=== PATIENT | female | born 1985 | race Caucasian/White ===

== ENCOUNTER → 2016-12-11 | Outpatient (CLI) | payer OTHER ==
[~2016-12-11] MED LIST: ALBU17IN2 INH; COUM7.5T PO; TYLE325T5 PO; XARE15TA PO
[2016-12-11 15:32] LABS: INR 1.86
== END ==
LOC: M LAB 14:50
PROVIDERS: ATTEND Family Medicine Addiction Medicine
DX: I82.409 Acute embolism and thrombosis of unspecified deep veins of unspecified lower extremity (principal)

== ENCOUNTER 2016-12-23 19:20 | Emergency (ER) | payer OTHER ==
[~2016-12-23] VITALS: Ht 165.1 cm; Wt 116.0 kg
[~2016-12-23 19:20] MED LIST changes: -ALBU17IN2 INH; -COUM7.5T PO
[2016-12-23] MEDS ORDERED: COUM7.5T PO (19:25)
[2016-12-23] MEDS ORDERED: IPRATROPIUM 0.5MG/ALBUTEROL 2.5MG INH SOL UD 3ML (DUONEB)(J7620) NEB ONE (19:45)
[2016-12-23] MEDS ORDERED: ALBUTEROL SULFATE 2.5 MG/0.5 ML INH NEB SOLN NEB ONE (19:45)
--- NOTE | 2016-12-23 20:18 | REP ---
PA and lateral chest: Comparison and 11/19/2015. 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 This is unchanged. Lung adams are clear. Cardiac size is normal. The [place], mediastinum, and bony thorax are unremarkable. Impression: There are no acute cardiopulmonary findings. Signed by Doug Cisse MD 12/23/2016 08:09 P
[2016-12-23] MEDS ORDERED: ALBU17IN2 INH (20:26)
[2016-12-23 20:33] VITALS: BP 133/72
== END 2016-12-23 20:36 | disposition home or self-care (01) ==
LOC: M ED 19:20
DX: J45.901 Unspecified asthma with (acute) exacerbation (principal); Z72.0 Tobacco use

== ENCOUNTER → 2017-03-16 | Outpatient (CLI) | payer OTHER ==
[~2017-03-16] MED LIST changes: +ALBU17IN2 INH; +COUM7.5T PO
[2017-03-16 14:28] LABS: INR 1.38
== END ==
LOC: M LAB 13:47
PROVIDERS: ATTEND Family Medicine Addiction Medicine
DX: I82.409 Acute embolism and thrombosis of unspecified deep veins of unspecified lower extremity (principal); Z79.01 Long term (current) use of anticoagulants

== ENCOUNTER → 2017-06-08 | Outpatient (REF) | payer OTHER ==
[2017-06-08 17:39] LABS: INR 2.12; PROTHROMBIN TIME 24.5 SECONDS (12.4-14.5)
== END ==
LOC: M LAB REF 16:18
DX: I82.409 Acute embolism and thrombosis of unspecified deep veins of unspecified lower extremity (principal)

== ENCOUNTER 2017-07-11 23:19 | Emergency (ER) | payer OTHER | END 2017-07-11 23:56 | disposition home or self-care (01) | LOC: M ED 23:19 | DX: J06.9 Acute upper respiratory infection, unspecified (principal); B34.9 Viral infection, unspecified; E03.9 Hypothyroidism, unspecified; G43.909 Migraine, unspecified, not intractable, without status migrainosus; D68.59 Other primary thrombophilia; Z86.718 Personal history of other venous thrombosis and embolism; Z79.899 Other long term (current) drug therapy; Z79.01 Long term (current) use of anticoagulants; Z88.5 Allergy status to narcotic agent; Z91.040 Latex allergy status; F17.210 Nicotine dependence, cigarettes, uncomplicated | CPT/HCPCS: 99283 ==

== ENCOUNTER → 2017-10-16 | Outpatient (REF) | payer OTHER ==
[2017-10-16 12:02] LABS: PROTHROMBIN TIME 30.7 SECONDS (12.4-14.5)
== END ==
LOC: M LAB REF 11:25
DX: I82.409 Acute embolism and thrombosis of unspecified deep veins of unspecified lower extremity (principal)
CPT/HCPCS: 85610

== ENCOUNTER → 2017-11-16 | Outpatient (REF) | payer OTHER ==
[2017-11-16 18:54] LABS: BASO # 0.1 10^3/uL (0.0-0.2); BASO % 0.9 % (0.0-1.0); EOS # 0.6 10^3/uL (0.0-0.50); EOS % 6.5 % (0.0-3.0); HEMATOCRIT 37.7 % (36.0-47.0); HEMOGLOBIN 12.4 g/dl (12.0-15.5); IMMATURE GRANULOCYTE % 0.3 % (0-3.0); LYMPH # 2.3 10^3/uL (1.5-4.5); LYMPH % 26.5 % (24.0-44.0); MEAN CORPUSCULAR HEMOGLOBIN 29.2 pg (27.0-33.0); MEAN CORPUSCULAR HGB CONC 32.9 g/dl (32.0-36.5); MEAN CORPUSCULAR VOLUME 88.7 fl (80.0-96.0); MONO # 0.5 10^3/uL (0.0-0.8); MONO % 5.1 % (0.0-5.0); NEUTROPHILS # 5.4 10^3/uL (1.8-7.7); NEUTROPHILS % 60.7 % (36.0-66.0); PLATELET COUNT, AUTOMATED 293 10^3/uL (150-450); RED BLOOD COUNT 4.25 10^6/uL (4.00-5.40); RED CELL DISTRIBUTION WIDTH 13.1 % (11.5-14.5); WHITE BLOOD COUNT 8.8 10^3/uL (4.0-10.0)
[2017-11-16 19:10] LABS: INR 1.51; PROTHROMBIN TIME 18.6 SECONDS (12.4-14.5)
[2017-11-16 19:21] LABS: IRON (FE) 24 UG/DL (50-170)
[2017-11-16 19:21] LABS: FERRITIN 8 NG/ML (8-252)
== END ==
LOC: M LAB REF 18:42
DX: I82.409 Acute embolism and thrombosis of unspecified deep veins of unspecified lower extremity (principal); D68.51 Activated protein C resistance

== ENCOUNTER 2017-11-20 21:12 | Emergency (ER) | payer MEDICAID, OTHER ==
[2017-11-20 23:25] LABS: HEMATOCRIT 38.2 % (36.0-47.0); HEMOGLOBIN 12.4 g/dl (12.0-15.5); MEAN CORPUSCULAR HEMOGLOBIN 28.7 pg (27.0-33.0); MEAN CORPUSCULAR HGB CONC 32.5 g/dl (32.0-36.5); MEAN CORPUSCULAR VOLUME 88.4 fl (80.0-96.0); PLATELET COUNT, AUTOMATED 267 10^3/uL (150-450); RED BLOOD COUNT 4.32 10^6/uL (4.00-5.40); WHITE BLOOD COUNT 10.4 10^3/uL (4.0-10.0)
[2017-11-20 23:36] LABS: INR 1.78; PROTHROMBIN TIME 21.3 SECONDS (12.4-14.5)
[2017-11-20 23:37] LABS: PARTIAL THROMBOPLASTIN TIME 38.3 SECONDS (26.8-37.9)
[2017-11-20 23:40] LABS: ANION GAP 9 MEQ/L (8-16); BLOOD UREA NITROGEN 13 MG/DL (7-18); CALCIUM LEVEL 9.7 MG/DL (8.5-10.1); CARBON DIOXIDE LEVEL 24 MEQ/L (21-32); CHLORIDE LEVEL 108 MEQ/L (98-107); CREATININE FOR GFR 0.82 MG/DL (0.55-1.30); GLOMERULAR FILTRATION RATE > 60.0 (>60); GLUCOSE, FASTING 92 MG/DL (70-100); POTASSIUM SERUM 3.8 MEQ/L (3.5-5.1); SODIUM LEVEL 141 MEQ/L (136-145)
[2017-11-21] MEDS ORDERED: ENOXAPARIN 100MG/1ML SYRINGE (J1650) SC (00:15)
[2017-11-21] MEDS: WARFARIN SOD 5 MG TAB PO (00:15)
[2017-11-21] MEDS: ENOXAPARIN 120 MG/0.8 ML SYR (J1650) SC ×2 (00:15→02:15)
== END 2017-11-21 02:23 | disposition home or self-care (01) ==
LOC: M ED 11-21 02:23
DX: I82.621 Acute embolism and thrombosis of deep veins of right upper extremity (principal); Z79.01 Long term (current) use of anticoagulants; F41.9 Anxiety disorder, unspecified; G43.909 Migraine, unspecified, not intractable, without status migrainosus; D68.59 Other primary thrombophilia; Z86.718 Personal history of other venous thrombosis and embolism; Z72.0 Tobacco use; Z79.899 Other long term (current) drug therapy; Z88.6 Allergy status to analgesic agent; Z88.5 Allergy status to narcotic agent; Z91.040 Latex allergy status
CPT/HCPCS: J1650

== ENCOUNTER → 2017-11-23 | Outpatient (CLI) | payer OTHER ==
[2017-11-23 18:50] LABS: INR 2.27; PROTHROMBIN TIME 25.9 SECONDS (12.4-14.5)
== END ==
LOC: M LAB 17:02
DX: Z51.81 Encounter for therapeutic drug level monitoring (principal); Z79.01 Long term (current) use of anticoagulants
CPT/HCPCS: 85610

== ENCOUNTER → 2017-12-01 | Outpatient (CLI) | payer OTHER ==
[2017-12-01 13:52] LABS: PROTHROMBIN TIME 21.2 SECONDS (12.1-14.4)
== END ==
LOC: M LAB 13:17
DX: Z51.81 Encounter for therapeutic drug level monitoring (principal); Z79.01 Long term (current) use of anticoagulants
CPT/HCPCS: 85610

== ENCOUNTER 2017-12-02 00:36 | Emergency (ER) | payer OTHER ==
[2017-12-02 01:42] LABS: BASO % 0.9 % (0.0-1.0); EOS % 5.3 % (0.0-3.0); HEMATOCRIT 38.9 % (36.0-47.0); HEMOGLOBIN 12.6 g/dl (12.0-15.5); LYMPH % 27.5 % (24.0-44.0); MEAN CORPUSCULAR HEMOGLOBIN 28.5 pg (27.0-33.0); MEAN CORPUSCULAR HGB CONC 32.4 g/dl (32.0-36.5); MONO % 5.7 % (0.0-5.0); NEUTROPHILS % 60.4 % (36.0-66.0); PLATELET COUNT, AUTOMATED 301 10^3/uL (150-450); RED BLOOD COUNT 4.42 10^6/uL (4.00-5.40); WHITE BLOOD COUNT 9.2 10^3/uL (4.0-10.0)
[2017-12-02 01:43] LABS: BASO # 0.1 10^3/uL (0.0-0.2); EOS # 0.5 10^3/uL (0.0-0.50); IMMATURE GRANULOCYTE % 0.2 % (0-3.0); LYMPH # 2.5 10^3/uL (1.5-4.5); MONO # 0.5 10^3/uL (0.0-0.8); NEUTROPHILS # 5.6 10^3/uL (1.8-7.7)
[2017-12-02 01:58] LABS: INR 1.97; PROTHROMBIN TIME 22.8 SECONDS (12.1-14.4)
[2017-12-02 01:59] LABS: CONTROL LINE HCG INT CTR LINE PRESENT; HCG, SERUM QUALITATIVE NEGATIVE (NEGATIVE); PARTIAL THROMBOPLASTIN TIME 46.8 SECONDS (25.4-37.6)
[2017-12-02] MEDS: LORazepam 2 MG/ML VIAL (J2060) IV (02:03)
[2017-12-02 02:06] LABS: ALBUMIN 3.3 GM/DL (3.2-5.2); ALBUMIN/GLOBULIN RATIO 0.85 (1.00-1.93); ALKALINE PHOSPHATASE 90 U/L (45-117); ALT/SGPT 28 U/L (12-78); ANION GAP 8 MEQ/L (8-16); AST/SGOT 10 U/L (7-37); BILIRUBIN,DIRECT < 0.1 MG/DL (0.0-0.2); BILIRUBIN,TOTAL 0.2 MG/DL (0.2-1.0); BLOOD UREA NITROGEN 14 MG/DL (7-18); CALCIUM LEVEL 9.5 MG/DL (8.5-10.1); CARBON DIOXIDE LEVEL 22 MEQ/L (21-32); CHLORIDE LEVEL 111 MEQ/L (98-107); CREATININE FOR GFR 0.81 MG/DL (0.55-1.30); GLOMERULAR FILTRATION RATE > 60.0 (>60); GLUCOSE, FASTING 98 MG/DL (70-100); LIPASE 209 U/L (73-393); POTASSIUM SERUM 4.2 MEQ/L (3.5-5.1); SODIUM LEVEL 141 MEQ/L (136-145); TOTAL PROTEIN 7.2 GM/DL (6.4-8.2)
[2017-12-02] MEDS ORDERED: ISOVUE-370 76% 100ML VIAL (Q9967) As Ordered (02:27)
== END 2017-12-02 04:05 | disposition home or self-care (01) ==
LOC: M ED 00:36
DX: R10.32 Left lower quadrant pain (principal); R11.0 Nausea; D68.59 Other primary thrombophilia; F41.9 Anxiety disorder, unspecified; Z86.718 Personal history of other venous thrombosis and embolism; Z79.899 Other long term (current) drug therapy; Z79.01 Long term (current) use of anticoagulants
CPT/HCPCS: Q9967

== ENCOUNTER → 2017-12-03 | Outpatient (CLI) | payer OTHER ==
[2017-12-03 14:38] LABS: INR 2.09; PROTHROMBIN TIME 23.9 SECONDS (12.1-14.4)
== END ==
LOC: M LAB 14:01
DX: Z51.81 Encounter for therapeutic drug level monitoring (principal); Z79.01 Long term (current) use of anticoagulants
CPT/HCPCS: 85610

== ENCOUNTER → 2017-12-07 | Outpatient (CLI) | payer OTHER ==
[2017-12-07 17:52] LABS: INR 1.96; PROTHROMBIN TIME 22.7 SECONDS (12.1-14.4)
== END ==
LOC: M LAB 16:51
DX: D68.1 Hereditary factor XI deficiency (principal)
CPT/HCPCS: 85610

== ENCOUNTER 2017-12-08 20:17 | Emergency (ER) | payer OTHER ==
[2017-12-08 23:18] LABS: INR 1.92; PROTHROMBIN TIME 22.3 SECONDS (12.1-14.4)
== END 2017-12-08 23:48 | disposition home or self-care (01) ==
LOC: M ED 20:17
DX: I82.621 Acute embolism and thrombosis of deep veins of right upper extremity (principal); R79.1 Abnormal coagulation profile; D68.59 Other primary thrombophilia; R51 Headache; Z72.0 Tobacco use; Z79.01 Long term (current) use of anticoagulants; Z79.899 Other long term (current) drug therapy; Z88.6 Allergy status to analgesic agent; Z88.5 Allergy status to narcotic agent; Z91.040 Latex allergy status
CPT/HCPCS: 93971

== ENCOUNTER → 2017-12-11 | Outpatient (REF) | payer OTHER ==
[2017-12-11 14:41] LABS: PROTHROMBIN TIME 24.9 SECONDS (12.1-14.4)
== END ==
LOC: M LAB REF 12:52
DX: Z79.01 Long term (current) use of anticoagulants (principal)

== ENCOUNTER → 2017-12-12 | Outpatient (CLI) | payer OTHER | LOC: M RAD 11:43 | DX: N92.1 Excessive and frequent menstruation with irregular cycle (principal) ==

== ENCOUNTER 2017-12-13 22:15 | Emergency (ER) | payer OTHER ==
[2017-12-14] MEDS: FAMOTIDINE 20 MG TAB PO (01:04)
[2017-12-14] MEDS: diphenhydrAMINE 50 MG CAP PO (01:04)
[2017-12-14] MEDS: methylPREDNISolone INJ 125 MG/2 ML VIAL (J2930) IM (01:04)
== END 2017-12-14 01:54 | disposition home or self-care (01) ==
LOC: M ED 22:15
DX: L50.0 Allergic urticaria (principal); D68.51 Activated protein C resistance; Z86.718 Personal history of other venous thrombosis and embolism; F17.210 Nicotine dependence, cigarettes, uncomplicated; Z79.899 Other long term (current) drug therapy; Z79.01 Long term (current) use of anticoagulants
CPT/HCPCS: J2930

== ENCOUNTER → 2017-12-15 | Outpatient (REF) | payer OTHER, MEDICAID ==
[2017-12-15 13:31] LABS: INR 2.76; PROTHROMBIN TIME 29.8 SECONDS (12.1-14.4)
== END ==
LOC: M LAB REF 13:03
DX: Z79.01 Long term (current) use of anticoagulants (principal)

== ENCOUNTER → 2017-12-18 | Outpatient (REF) | payer OTHER, MEDICAID ==
[2017-12-18 13:14] LABS: PROTHROMBIN TIME 22.2 SECONDS (12.1-14.4)
== END ==
LOC: M LAB REF 12:40
DX: Z51.81 Encounter for therapeutic drug level monitoring (principal); Z79.01 Long term (current) use of anticoagulants
CPT/HCPCS: 85610

== ENCOUNTER → 2017-12-24 | Outpatient (REF) | payer OTHER, MEDICAID ==
[2017-12-24 12:48] LABS: INR 2.65; PROTHROMBIN TIME 28.8 SECONDS (12.1-14.4)
== END ==
LOC: M LAB REF 12:22
DX: Z51.81 Encounter for therapeutic drug level monitoring (principal); Z79.01 Long term (current) use of anticoagulants
CPT/HCPCS: 85610

== ENCOUNTER 2017-12-30 19:46 | Emergency (ER) | payer OTHER, MEDICAID ==
[2017-12-30] MEDS: NS 1,000 ML IV (22:15)
[2017-12-30 22:28] LABS: BASO # 0.1 10^3/uL (0.0-0.2); BASO % 0.8 % (0.0-1.0); EOS # 0.5 10^3/uL (0.0-0.50); HEMATOCRIT 36.9 % (36.0-47.0); HEMOGLOBIN 11.7 g/dl (12.0-15.5); IMMATURE GRANULOCYTE % 0.3 % (0-3.0); LYMPH # 2.5 10^3/uL (1.5-4.5); LYMPH % 27.4 % (24.0-44.0); MEAN CORPUSCULAR HEMOGLOBIN 26.8 pg (27.0-33.0); MEAN CORPUSCULAR HGB CONC 31.7 g/dl (32.0-36.5); MEAN CORPUSCULAR VOLUME 84.6 fl (80.0-96.0); MONO # 0.5 10^3/uL (0.0-0.8); MONO % 5.6 % (0.0-5.0); NEUTROPHILS # 5.6 10^3/uL (1.8-7.7); NEUTROPHILS % 60.9 % (36.0-66.0); PLATELET COUNT, AUTOMATED 297 10^3/uL (150-450); RED BLOOD COUNT 4.36 10^6/uL (4.00-5.40); RED CELL DISTRIBUTION WIDTH 13.8 % (11.5-14.5); WHITE BLOOD COUNT 9.2 10^3/uL (4.0-10.0)
[2017-12-30 22:35] LABS: KETONE, URINE AUTO RFX NEGATIVE (NEGATIVE); MUCUS, URINE RFX SMALL (NEGATIVE); NITRITE, URINE AUTO RFX NEGATIVE (NEGATIVE); RBC, URINE AUTO RFX 2 /HPF (0-3); SPECIFIC GRAVITY UR AUTO RFX 1.013 (1.002-1.035); SQUAM EPITHELIAL CELL UR AURFX 4 /HPF (0-6); WBC, URINE AUTO RFX 2 /HPF (0-3)
[2017-12-30 22:50] LABS: LEUKOCYTE ESTERASE UR AUTO RFX TRACE (NEGATIVE)
[2017-12-30 23:07] LABS: ALBUMIN 3.4 GM/DL (3.2-5.2); ALBUMIN/GLOBULIN RATIO 0.83 (1.00-1.93); ALKALINE PHOSPHATASE 87 U/L (45-117); ALT/SGPT 20 U/L (12-78); AMYLASE 44 U/L (25-115); ANION GAP 10 MEQ/L (8-16); AST/SGOT 11 U/L (7-37); BILIRUBIN,DIRECT < 0.1 MG/DL (0.0-0.2); BILIRUBIN,TOTAL 0.2 MG/DL (0.2-1.0); BLOOD UREA NITROGEN 10 MG/DL (7-18); CALCIUM LEVEL 9.4 MG/DL (8.5-10.1); CARBON DIOXIDE LEVEL 22 MEQ/L (21-32); CHLORIDE LEVEL 108 MEQ/L (98-107); CK-MB VALUE MASS < 1.0 NG/ML (<3.6); CPK CREATINE PHOSPHOKINASE 59 U/L (26-192); CREATININE FOR GFR 0.69 MG/DL (0.55-1.30); GLOMERULAR FILTRATION RATE > 60.0 (>60); GLUCOSE, FASTING 84 MG/DL (70-100); LIPASE 181 U/L (73-393); MB/CK RELATIVE INDEX 1.69 (< OR =4); POTASSIUM SERUM 3.9 MEQ/L (3.5-5.1); SODIUM LEVEL 140 MEQ/L (136-145); TOTAL PROTEIN 7.5 GM/DL (6.4-8.2); TROPONIN I < 0.02 NG/ML (< 0.10)
[2017-12-30] MEDS ORDERED: ISOVUE-370 76% 100ML VIAL (Q9967) As Ordered (23:23)
[2017-12-30] MEDS: LORazepam 1 MG TAB PO (23:25)
[2017-12-30 23:26] LABS: CONTROL LINE UCG INT CTR LINE PRESENT; URINE PREG TEST NEGATIVE (NEGATIVE)
== END 2017-12-31 01:57 | disposition home or self-care (01) ==
LOC: M ED 12-31 01:57
DX: R10.13 Epigastric pain (principal); I44.0 Atrioventricular block, first degree; G43.909 Migraine, unspecified, not intractable, without status migrainosus; E03.9 Hypothyroidism, unspecified; D68.59 Other primary thrombophilia; F41.9 Anxiety disorder, unspecified; F41.0 Panic disorder [episodic paroxysmal anxiety]; F40.00 Agoraphobia, unspecified; Z86.718 Personal history of other venous thrombosis and embolism; Z87.01 Personal history of pneumonia (recurrent); N83.291 Other ovarian cyst, right side; R93.2 Abnormal findings on diagnostic imaging of liver and biliary tract; Z79.01 Long term (current) use of anticoagulants; Z79.899 Other long term (current) drug therapy; Z88.6 Allergy status to analgesic agent; Z88.5 Allergy status to narcotic agent; Z91.040 Latex allergy status
CPT/HCPCS: Q9967

== ENCOUNTER → 2018-01-01 | Outpatient (REF) | payer OTHER ==
[2018-01-01 14:26] LABS: INR 2.63; PROTHROMBIN TIME 28.6 SECONDS (12.1-14.4)
== END ==
LOC: M LAB REF 13:05
DX: Z79.01 Long term (current) use of anticoagulants (principal)

== ENCOUNTER → 2018-01-08 | Outpatient (REF) | payer OTHER ==
[2018-01-08 13:01] LABS: INR 2.75; PROTHROMBIN TIME 29.7 SECONDS (12.1-14.4)
== END ==
LOC: M LAB REF 12:45
DX: Z79.01 Long term (current) use of anticoagulants (principal)

== ENCOUNTER → 2018-01-12 | Outpatient (REF) | payer OTHER ==
[2018-01-12 12:34] LABS: INR 3.29; PROTHROMBIN TIME 34.2 SECONDS (12.1-14.4)
== END ==
LOC: M LAB REF 11:36
DX: Z79.01 Long term (current) use of anticoagulants (principal)

== ENCOUNTER → 2018-01-19 | Outpatient (REF) | payer OTHER ==
[2018-01-19 12:24] LABS: INR 2.36; PROTHROMBIN TIME 26.3 SECONDS (12.1-14.4)
== END ==
LOC: M LAB REF 11:58
DX: Z79.01 Long term (current) use of anticoagulants (principal)
CPT/HCPCS: 85610

== ENCOUNTER → 2018-01-25 | Outpatient (REF) | payer OTHER ==
[2018-01-25 17:39] LABS: INR 1.74; PROTHROMBIN TIME 20.6 SECONDS (12.1-14.4)
== END ==
LOC: M LAB REF 16:52
DX: Z79.01 Long term (current) use of anticoagulants (principal)

== ENCOUNTER 2018-02-09 16:27 | Emergency (ER) | payer OTHER, MEDICAID | END 2018-02-09 17:42 | disposition home or self-care (01) | LOC: M ED 16:27 | DX: M54.32 Sciatica, left side (principal); M54.10 Radiculopathy, site unspecified; G43.909 Migraine, unspecified, not intractable, without status migrainosus; Z86.718 Personal history of other venous thrombosis and embolism; F17.200 Nicotine dependence, unspecified, uncomplicated; Z88.6 Allergy status to analgesic agent; Z88.5 Allergy status to narcotic agent; Z91.040 Latex allergy status; Z79.899 Other long term (current) drug therapy; Z79.01 Long term (current) use of anticoagulants | CPT/HCPCS: 99283 ==

== ENCOUNTER → 2018-02-10 | Outpatient (REF) | payer OTHER ==
[2018-02-10 13:47] LABS: PROTHROMBIN TIME 25.7 SECONDS (12.1-14.4)
== END ==
LOC: M LAB REF 12:54
DX: D68.51 Activated protein C resistance (principal)

== ENCOUNTER → 2018-02-19 | Outpatient (REF) | payer OTHER ==
[2018-02-19 12:27] LABS: INR 2.14; PROTHROMBIN TIME 24.3 SECONDS (12.1-14.4)
== END ==
LOC: M LAB REF 12:01
DX: Z79.01 Long term (current) use of anticoagulants (principal)

== ENCOUNTER → 2018-02-26 | Outpatient (REF) | payer OTHER ==
[2018-02-26 13:04] LABS: PROTHROMBIN TIME 17.4 SECONDS (12.1-14.4)
== END ==
LOC: M LAB REF 12:40
DX: Z79.01 Long term (current) use of anticoagulants (principal)

== ENCOUNTER → 2018-03-02 | Outpatient (REF) | payer OTHER, MEDICAID ==
[2018-03-02 13:20] LABS: INR 2.31; PROTHROMBIN TIME 25.8 SECONDS (12.1-14.4)
== END ==
LOC: M LAB REF 12:13
DX: Z79.01 Long term (current) use of anticoagulants (principal)

== ENCOUNTER → 2018-03-09 | Outpatient (REF) | payer OTHER, MEDICAID ==
[2018-03-09 12:59] LABS: PROTHROMBIN TIME 26.7 SECONDS (12.1-14.4)
== END ==
LOC: M LAB REF 12:24
DX: Z79.01 Long term (current) use of anticoagulants (principal)

== ENCOUNTER → 2018-03-12 | Outpatient (REF) | payer OTHER, MEDICAID ==
[2018-03-12 14:31] LABS: INR 2.57; PROTHROMBIN TIME 28.1 SECONDS (12.1-14.4)
== END ==
LOC: M LAB REF 14:11
DX: Z79.01 Long term (current) use of anticoagulants (principal)
CPT/HCPCS: 85610

== ENCOUNTER → 2018-03-18 | Outpatient (REF) | payer OTHER, MEDICAID ==
[2018-03-18 13:01] LABS: INR 2.38; PROTHROMBIN TIME 26.5 SECONDS (12.1-14.4)
== END ==
LOC: M LAB REF 12:18
DX: Z79.01 Long term (current) use of anticoagulants (principal)

== ENCOUNTER 2018-03-21 00:52 | Emergency (ER) | payer OTHER, MEDICAID ==
[2018-03-21] MEDS ORDERED: ISOVUE-370 76% 100ML VIAL (Q9967) As Ordered (01:21)
[2018-03-21 01:47] LABS: BASO # 0.1 10^3/uL (0.0-0.2); BASO % 0.7 % (0.0-1.0); EOS # 0.9 10^3/uL (0.0-0.50); EOS % 7.5 % (0.0-3.0); HEMATOCRIT 29.8 % (36.0-47.0); HEMOGLOBIN 8.7 g/dl (12.0-15.5); IMMATURE GRANULOCYTE % 0.5 % (0-3.0); LYMPH # 3.5 10^3/uL (1.5-4.5); LYMPH % 28.5 % (24.0-44.0); MEAN CORPUSCULAR HEMOGLOBIN 21.6 pg (27.0-33.0); MEAN CORPUSCULAR HGB CONC 29.2 g/dl (32.0-36.5); MEAN CORPUSCULAR VOLUME 74.1 fl (80.0-96.0); MONO # 0.6 10^3/uL (0.0-0.8); MONO % 4.8 % (0.0-5.0); NEUTROPHILS # 7.1 10^3/uL (1.8-7.7); PLATELET COUNT, AUTOMATED 321 10^3/uL (150-450); RED BLOOD COUNT 4.02 10^6/uL (4.00-5.40); RED CELL DISTRIBUTION WIDTH 15.9 % (11.5-14.5); WHITE BLOOD COUNT 12.2 10^3/uL (4.0-10.0)
[2018-03-21 02:09] LABS: ANION GAP 10 MEQ/L (8-16); BLOOD UREA NITROGEN 17 MG/DL (7-18); CALCIUM LEVEL 9.3 MG/DL (8.5-10.1); CARBON DIOXIDE LEVEL 21 MEQ/L (21-32); CHLORIDE LEVEL 109 MEQ/L (98-107); CREATININE FOR GFR 1.03 MG/DL (0.55-1.30); GLOMERULAR FILTRATION RATE > 60.0 (>60); GLUCOSE, FASTING 96 MG/DL (70-100); POTASSIUM SERUM 4.1 MEQ/L (3.5-5.1); SODIUM LEVEL 140 MEQ/L (136-145)
== END 2018-03-21 04:06 | disposition home or self-care (01) ==
LOC: M ED 00:52
DX: R07.9 Chest pain, unspecified (principal); M54.9 Dorsalgia, unspecified; R06.00 Dyspnea, unspecified; G43.909 Migraine, unspecified, not intractable, without status migrainosus; D68.59 Other primary thrombophilia; Z86.718 Personal history of other venous thrombosis and embolism; Z79.899 Other long term (current) drug therapy; Z79.01 Long term (current) use of anticoagulants; Z88.5 Allergy status to narcotic agent; Z88.8 Allergy status to other drugs, medicaments and biological substances; Z91.040 Latex allergy status; F17.210 Nicotine dependence, cigarettes, uncomplicated
CPT/HCPCS: Q9967

== ENCOUNTER → 2018-03-25 | Outpatient (REF) | payer OTHER ==
[2018-03-25 17:49] LABS: INR 2.17; PROTHROMBIN TIME 24.6 SECONDS (12.1-14.4)
[2018-03-25 17:52] LABS: BASO # 0.1 10^3/uL (0.0-0.2); EOS # 0.5 10^3/uL (0.0-0.50); EOS % 5.6 % (0.0-3.0); HEMATOCRIT 28.3 % (36.0-47.0); HEMOGLOBIN 8.4 g/dl (12.0-15.5); IMMATURE GRANULOCYTE % 0.3 % (0-3.0); LYMPH # 2.1 10^3/uL (1.5-4.5); LYMPH % 23.1 % (24.0-44.0); MEAN CORPUSCULAR HEMOGLOBIN 21.8 pg (27.0-33.0); MEAN CORPUSCULAR HGB CONC 29.7 g/dl (32.0-36.5); MEAN CORPUSCULAR VOLUME 73.3 fl (80.0-96.0); MONO # 0.4 10^3/uL (0.0-0.8); MONO % 4.6 % (0.0-5.0); NEUTROPHILS % 65.4 % (36.0-66.0); PLATELET COUNT, AUTOMATED 367 10^3/uL (150-450); RED BLOOD COUNT 3.86 10^6/uL (4.00-5.40); RED CELL DISTRIBUTION WIDTH 16.4 % (11.5-14.5); WHITE BLOOD COUNT 9.1 10^3/uL (4.0-10.0)
[2018-03-25 18:03] LABS: FERRITIN 5 NG/ML (8-252); FOLATE 17.1 NG/ML (>5.4)
[2018-03-25 18:03] LABS: IRON (FE) 16 UG/DL (50-170)
== END ==
LOC: M LAB REF 17:09
DX: D64.9 Anemia, unspecified (principal)

== ENCOUNTER 2018-03-27 20:38 | Emergency (ER) | payer OTHER ==
[2018-03-27] MEDS: METOCLOPRAMIDE INJ 10MG/2ML VIAL (J2765) IV (21:00)
[2018-03-27] MEDS: NS 1,000 ML IV (21:00)
[2018-03-27 21:33] LABS: BASO # 0.1 10^3/uL (0.0-0.2); BASO % 0.9 % (0.0-1.0); EOS # 0.5 10^3/uL (0.0-0.50); EOS % 5.2 % (0.0-3.0); HEMATOCRIT 28.3 % (36.0-47.0); HEMOGLOBIN 8.1 g/dl (12.0-15.5); IMMATURE GRANULOCYTE % 0.4 % (0-3.0); LYMPH # 1.6 10^3/uL (1.5-4.5); MEAN CORPUSCULAR HEMOGLOBIN 21.4 pg (27.0-33.0); MEAN CORPUSCULAR HGB CONC 28.6 g/dl (32.0-36.5); MEAN CORPUSCULAR VOLUME 74.9 fl (80.0-96.0); MONO # 0.5 10^3/uL (0.0-0.8); MONO % 5.7 % (0.0-5.0); NEUTROPHILS # 6.3 10^3/uL (1.8-7.7); NEUTROPHILS % 69.8 % (36.0-66.0); PLATELET COUNT, AUTOMATED 362 10^3/uL (150-450); RED BLOOD COUNT 3.78 10^6/uL (4.00-5.40); RED CELL DISTRIBUTION WIDTH 16.6 % (11.5-14.5); WHITE BLOOD COUNT 9.1 10^3/uL (4.0-10.0)
[2018-03-27 21:39] LABS: BILIRUBIN, URINE MANUAL NEGATIVE (NEGATIVE); BLOOD URINE MANUAL RFX POSITIVE (NEGATIVE); GLUCOSE, URINE (UA) MANUAL NEGATIVE (NEGATIVE); KETONE, URINE MANUAL NEGATIVE (NEGATIVE); MICROSCOPIC INDICATED? RFX YES (NO); NITRITE, URINE MANUAL RFX NEGATIVE (NEGATIVE); PROTEIN, URINE MANUAL REFLEX 2+ mg/dL (NEGATIVE); SP GRAVITY,URINE MANUAL REFLEX 1.024 (1.002-1.035); UROBILINOGEN, URINE MANUAL NORMAL (NORMAL)
[2018-03-27 21:41] LABS: RBC, URINE TNTC /hpf (0-3); SQUAMOUS EPITHELIAL CELL URINE SMALL AMOUNT /hpf (SMALL AMT)
[2018-03-27 21:42] LABS: AMORPHOUS SEDIMENT, URINE SMALL AMOUNT (NEGATIVE); BACTERIA, URINE SMALL AMOUNT; HYALINE CAST, URINE NONE SEEN /lpf (0-1)
[2018-03-27 21:43] LABS: MICROSCOPIC EXAM PERFORMED
[2018-03-27 22:06] LABS: ALBUMIN 3.2 GM/DL (3.2-5.2); ALBUMIN/GLOBULIN RATIO 0.84 (1.00-1.93); ALKALINE PHOSPHATASE 89 U/L (45-117); ALT/SGPT 18 U/L (12-78); ANION GAP 11 MEQ/L (8-16); AST/SGOT 16 U/L (7-37); BILIRUBIN,DIRECT < 0.1 MG/DL (0.0-0.2); BILIRUBIN,TOTAL 0.2 MG/DL (0.2-1.0); BLOOD UREA NITROGEN 9 MG/DL (7-18); CALCIUM LEVEL 9.3 MG/DL (8.5-10.1); CARBON DIOXIDE LEVEL 21 MEQ/L (21-32); CHLORIDE LEVEL 108 MEQ/L (98-107); CREATININE FOR GFR 0.79 MG/DL (0.55-1.30); GLOMERULAR FILTRATION RATE > 60.0 (>60); GLUCOSE, FASTING 122 MG/DL (70-100); POTASSIUM SERUM 3.9 MEQ/L (3.5-5.1); SODIUM LEVEL 140 MEQ/L (136-145)
== END 2018-03-27 22:42 | disposition home or self-care (01) ==
LOC: M ED 20:38
DX: D50.9 Iron deficiency anemia, unspecified (principal); I10 Essential (primary) hypertension; F17.200 Nicotine dependence, unspecified, uncomplicated; Z88.8 Allergy status to other drugs, medicaments and biological substances; Z88.5 Allergy status to narcotic agent; Z91.040 Latex allergy status
CPT/HCPCS: J2765

== ENCOUNTER → 2018-03-30 | Outpatient (REF) | payer OTHER, MEDICAID ==
[2018-03-30 20:35] LABS: INR 1.95; PROTHROMBIN TIME 22.6 SECONDS (12.1-14.4)
== END ==
LOC: M LAB REF 19:49
DX: Z51.81 Encounter for therapeutic drug level monitoring (principal); Z79.01 Long term (current) use of anticoagulants
CPT/HCPCS: 85610

== ENCOUNTER 2018-04-19 19:45 | Emergency (ER) | payer OTHER, MEDICAID ==
[2018-04-19 21:05] LABS: PARTIAL THROMBOPLASTIN TIME 50.3 SECONDS (25.4-37.6)
[2018-04-19 21:28] LABS: INR 2.85; PROTHROMBIN TIME 30.5 SECONDS (12.1-14.4)
== END 2018-04-19 22:06 | disposition home or self-care (01) ==
LOC: M ED 19:45
DX: Z51.81 Encounter for therapeutic drug level monitoring (principal); Z79.01 Long term (current) use of anticoagulants; D68.2 Hereditary deficiency of other clotting factors
CPT/HCPCS: 85610

== ENCOUNTER 2018-04-21 15:02 | Emergency (ER) | payer OTHER ==
[2018-04-21 15:40] LABS: BASO # 0.1 10^3/uL (0.0-0.2); EOS # 0.4 10^3/uL (0.0-0.50); EOS % 5.2 % (0.0-3.0); HEMATOCRIT 36.3 % (36.0-47.0); HEMOGLOBIN 10.8 g/dl (12.0-15.5); IMMATURE GRANULOCYTE % 0.4 % (0-3.0); LYMPH # 1.8 10^3/uL (1.5-4.5); LYMPH % 22.1 % (24.0-44.0); MEAN CORPUSCULAR HEMOGLOBIN 23.6 pg (27.0-33.0); MEAN CORPUSCULAR HGB CONC 29.8 g/dl (32.0-36.5); MEAN CORPUSCULAR VOLUME 79.4 fl (80.0-96.0); MONO # 0.4 10^3/uL (0.0-0.8); NEUTROPHILS # 5.5 10^3/uL (1.8-7.7); NEUTROPHILS % 66.3 % (36.0-66.0); PLATELET COUNT, AUTOMATED 305 10^3/uL (150-450); RED BLOOD COUNT 4.57 10^6/uL (4.00-5.40); RED CELL DISTRIBUTION WIDTH 23.8 % (11.5-14.5); WHITE BLOOD COUNT 8.2 10^3/uL (4.0-10.0)
[2018-04-21 15:50] LABS: INR 2.43; PROTHROMBIN TIME 26.9 SECONDS (12.1-14.4)
[2018-04-21 15:51] LABS: PARTIAL THROMBOPLASTIN TIME 44.6 SECONDS (25.4-37.6)
[2018-04-21] MEDS: NS 1,000 ML IV (16:12)
[2018-04-21 16:13] LABS: IRON (FE) 82 UG/DL (50-170); TOTAL IRON BINDING CAPACITY 409 UG/DL (250-450)
== END 2018-04-21 17:03 | disposition home or self-care (01) ==
LOC: M ED 15:02
DX: D50.9 Iron deficiency anemia, unspecified (principal); I95.1 Orthostatic hypotension; G43.909 Migraine, unspecified, not intractable, without status migrainosus; D68.59 Other primary thrombophilia; Z86.718 Personal history of other venous thrombosis and embolism; Z72.0 Tobacco use; Z79.01 Long term (current) use of anticoagulants; Z79.899 Other long term (current) drug therapy; Z88.6 Allergy status to analgesic agent; Z88.5 Allergy status to narcotic agent; Z91.040 Latex allergy status
CPT/HCPCS: 83550

== ENCOUNTER → 2018-04-27 | Outpatient (REF) | payer OTHER, MEDICAID ==
[2018-04-27 12:53] LABS: INR 3.14
== END ==
LOC: M LAB REF 12:21
DX: Z51.81 Encounter for therapeutic drug level monitoring (principal); Z79.01 Long term (current) use of anticoagulants
CPT/HCPCS: 85610

== ENCOUNTER → 2018-05-14 | Outpatient (REF) | payer OTHER, MEDICAID ==
[2018-05-14 17:58] LABS: INR 2.12; PROTHROMBIN TIME 24.2 SECONDS (12.1-14.4)
== END ==
LOC: M LAB REF 16:54
DX: Z79.01 Long term (current) use of anticoagulants (principal)
CPT/HCPCS: 85610

== ENCOUNTER → 2018-06-09 | Outpatient (REF) | payer OTHER, MEDICAID ==
[~2018-06-09] MED LIST changes: +AUGM875T28 PO; +BUSP15TA47 PO; +BUSP30TA PO; +CYCL10TA PO; +FERR28TA PO; +IBUP-1022 PO; +KLON0.5T PO; +LOVE1INJ SC; +PRED20TA; +VENTAER INH; +WARF-20 PO; +WARF-22; +WARF-23 PO
[2018-06-09 19:08] LABS: BASO # 0.1 10^3/uL (0.0-0.2); BASO % 1.1 % (0.0-1.0); EOS # 0.6 10^3/uL (0.0-0.50); HEMATOCRIT 36.2 % (36.0-47.0); HEMOGLOBIN 11.2 g/dl (12.0-15.5); LYMPH # 2.4 10^3/uL (1.5-4.5); LYMPH % 24.2 % (24.0-44.0); MEAN CORPUSCULAR HEMOGLOBIN 25.5 pg (27.0-33.0); MEAN CORPUSCULAR HGB CONC 30.9 g/dl (32.0-36.5); MEAN CORPUSCULAR VOLUME 82.3 fl (80.0-96.0); MONO # 0.4 10^3/uL (0.0-0.8); MONO % 4.5 % (0.0-5.0); NEUTROPHILS # 6.3 10^3/uL (1.8-7.7); PLATELET COUNT, AUTOMATED 317 10^3/uL (150-450); WHITE BLOOD COUNT 9.9 10^3/uL (4.0-10.0)
[2018-06-09 19:22] LABS: INR 2.42; PROTHROMBIN TIME 26.9 SECONDS (12.1-14.4)
[2018-06-09 19:29] LABS: ALBUMIN 3.4 GM/DL (3.2-5.2); ALT/SGPT 26 U/L (12-78); BILIRUBIN,TOTAL < 0.1 MG/DL (0.2-1.0); BLOOD UREA NITROGEN 14 MG/DL (7-18); CALCIUM LEVEL 9.4 MG/DL (8.5-10.1); CARBON DIOXIDE LEVEL 23 MEQ/L (21-32); CHLORIDE LEVEL 110 MEQ/L (98-107); CREATININE FOR GFR 0.84 MG/DL (0.55-1.30); GLOMERULAR FILTRATION RATE > 60.0 (>60); GLUCOSE, FASTING 104 MG/DL (70-100); POTASSIUM SERUM 4.1 MEQ/L (3.5-5.1); SODIUM LEVEL 141 MEQ/L (136-145); TOTAL PROTEIN 7.2 GM/DL (6.4-8.2)
== END ==
LOC: M LAB REF 18:36
PROVIDERS: ATTEND Nurse Practitioner Family
DX: E66.9 Obesity, unspecified (principal); D64.9 Anemia, unspecified; Z79.01 Long term (current) use of anticoagulants; D68.51 Activated protein C resistance

== ENCOUNTER 2018-06-16 17:30 | Emergency (ER) | payer MEDICAID, OTHER ==
[~2018-06-16] VITALS: Ht 162.6 cm; Wt 110.5 kg
[~2018-06-16 17:30] MED LIST changes: -KLON0.5T PO
[2018-06-16] MEDS ORDERED: KLON0.5T PO (17:38)
--- NOTE | 2018-06-16 19:11 | REPVR ---
EXAM: US Right Duplex Upper Extremity Veins, Limited EXAM DATE/TIME: 06/16/2018 6:04 PM CLINICAL HISTORY: 32 years old, female; Pain; Arn, upper; Right; Additional info: Pain/clotting disorder TECHNIQUE: Real-time Duplex ultrasound of the Right Upper Extremity with 2-D wall scale, color Doppler flow and spectral waveform analysis. Limited exam focused on the right upper extremity veins. COMPARISON: US DUPLEX EXT UPPER VEINS UNILATE 12/08/2017 9:43 PM FINDINGS: Right deep veins: Unremarkable. Axillary and brachial veins are patent throughout without thrombus. Normal compressibility, augmentation response and Doppler waveforms. Visualized internal jugular and subclavian veins are patent. Right superficial veins: Unremarkable. Visualized cephalic and basilic veins are patent without thrombus. Soft tissues: Unremarkable. IMPRESSION: No acute findings. No evidence of deep vein thrombosis. Electronically signed by: Blake Hernanedz On 06/16/2018 19:11:13 PM
[2018-06-16 19:23] VITALS: BP 102/75
== END 2018-06-16 19:24 | disposition home or self-care (01) ==
LOC: M ED 17:30
DX: M79.621 Pain in right upper arm (principal)

== ENCOUNTER → 2018-06-16 | Outpatient (REF) | payer OTHER, MEDICAID ==
[2018-06-16 15:01] LABS: INR 1.56; PROTHROMBIN TIME 18.9 SECONDS (12.1-14.4)
== END ==
LOC: M LAB REF 14:36
PROVIDERS: ATTEND Nurse Practitioner Family
DX: Z51.81 Encounter for therapeutic drug level monitoring (principal); Z79.01 Long term (current) use of anticoagulants; D68.51 Activated protein C resistance

== ENCOUNTER → 2018-06-21 | Outpatient (REF) | payer OTHER ==
[~2018-06-21] MED LIST changes: +KLON0.5T PO
[2018-06-21 19:01] LABS: INR 2.15; PROTHROMBIN TIME 24.4 SECONDS (12.1-14.4)
== END ==
LOC: M LAB REF 16:52
PROVIDERS: ATTEND Nurse Practitioner Adult Health
DX: Z51.81 Encounter for therapeutic drug level monitoring (principal); Z79.01 Long term (current) use of anticoagulants

== ENCOUNTER 2018-06-25 11:24 | Emergency (ER) | payer OTHER ==
[~2018-06-25] VITALS: Ht 165.1 cm; Wt 110.5 kg
[2018-06-25 11:57] LABS: BASO # 0.1 10^3/uL (0.0-0.2); BASO % 0.8 % (0.0-1.0); EOS # 0.6 10^3/uL (0.0-0.50); EOS % 6.8 % (0.0-3.0); HEMATOCRIT 30.3 % (36.0-47.0); HEMOGLOBIN 9.3 g/dl (12.0-15.5); LYMPH # 2.2 10^3/uL (1.5-4.5); LYMPH % 23.4 % (24.0-44.0); MEAN CORPUSCULAR HEMOGLOBIN 24.7 pg (27.0-33.0); MEAN CORPUSCULAR HGB CONC 30.7 g/dl (32.0-36.5); MEAN CORPUSCULAR VOLUME 80.6 fl (80.0-96.0); MONO # 0.4 10^3/uL (0.0-0.8); MONO % 4.7 % (0.0-5.0); NEUTROPHILS # 5.9 10^3/uL (1.8-7.7); NEUTROPHILS % 64.1 % (36.0-66.0); PLATELET COUNT, AUTOMATED 406 10^3/uL (150-450); RED BLOOD COUNT 3.76 10^6/uL (4.00-5.40); WHITE BLOOD COUNT 9.2 10^3/uL (4.0-10.0)
[2018-06-25 12:10] LABS: INR 2.2; PROTHROMBIN TIME 24.9 SECONDS (12.1-14.4)
[2018-06-25 12:11] LABS: PARTIAL THROMBOPLASTIN TIME 46.2 SECONDS (25.4-37.6)
[2018-06-25 12:25] LABS: ERYTHROCYTE SEDIMENTATION RATE 44 mm/hr (0-20)
[2018-06-25 12:34] LABS: ALBUMIN 3.4 GM/DL (3.2-5.2); ALT/SGPT 18 U/L (12-78); BILIRUBIN,DIRECT < 0.1 MG/DL (0.0-0.2); BILIRUBIN,TOTAL 0.2 MG/DL (0.2-1.0); BLOOD UREA NITROGEN 8 MG/DL (7-18); C REACTIVE PROTEIN QUANTITATIV 1.44 MG/DL (0.00-0.30); CALCIUM LEVEL 9.5 MG/DL (8.5-10.1); CARBON DIOXIDE LEVEL 23 MEQ/L (21-32); CHLORIDE LEVEL 108 MEQ/L (98-107); CREATININE FOR GFR 0.66 MG/DL (0.55-1.30); GLOMERULAR FILTRATION RATE > 60.0 (>60); GLUCOSE, FASTING 89 MG/DL (70-100); POTASSIUM SERUM 4.3 MEQ/L (3.5-5.1); SODIUM LEVEL 138 MEQ/L (136-145); TOTAL PROTEIN 6.8 GM/DL (6.4-8.2)
--- NOTE | 2018-06-25 14:04 | REP ---
RIGHT UPPER EXTREMITY DUPLEX VEINS: HISTORY: Rule out DVT. There are no filling defects in the deep venous system. The deep venous system is patent. IMPRESSION: There is no deep venous thrombosis. Electronically Signed by Ankush Mcmahon MD 06/25/2018 02:08 P
[2018-06-25 14:22] VITALS: BP 151/65
== END 2018-06-25 14:26 | disposition home or self-care (01) ==
LOC: M ED 11:24
DX: M79.621 Pain in right upper arm (principal); F17.210 Nicotine dependence, cigarettes, uncomplicated; Z86.718 Personal history of other venous thrombosis and embolism; Z98.890 Other specified postprocedural states; Z88.8 Allergy status to other drugs, medicaments and biological substances; Z91.040 Latex allergy status; Z88.5 Allergy status to narcotic agent; Z79.01 Long term (current) use of anticoagulants; Z79.899 Other long term (current) drug therapy

== ENCOUNTER 2018-07-19 10:12 | Emergency (ER) | payer OTHER ==
[~2018-07-19] VITALS: Ht 165.1 cm; Wt 109.1 kg
[2018-07-19] MEDS ORDERED: IPRATROPIUM 0.5MG/ALBUTEROL 2.5MG INH SOL UD 3ML (DUONEB)(J7620) NEB ONE (11:15)
[2018-07-19] MEDS ORDERED: GI COCKTAIL 50ML BTL(HYOSCYAMINE/MAALOX/LIDOCAINE VISCOUS)(1:3:1) PO ONE (11:15)
[2018-07-19] MEDS ORDERED: DICYCLOMINE 10 MG CAP PO ONE (11:15)
[2018-07-19] MEDS ORDERED: SUCRALFATE 1 GM TAB PO ONE (11:15)
[2018-07-19 12:00] LABS: HEMATOCRIT 36.7 % (36.0-47.0); HEMOGLOBIN 10.9 g/dl (12.0-15.5); MEAN CORPUSCULAR HEMOGLOBIN 24.7 pg (27.0-33.0); MEAN CORPUSCULAR HGB CONC 29.7 g/dl (32.0-36.5); PLATELET COUNT, AUTOMATED 364 10^3/uL (150-450); RED BLOOD COUNT 4.42 10^6/uL (4.00-5.40); WHITE BLOOD COUNT 7.6 10^3/uL (4.0-10.0)
--- NOTE | 2018-07-19 12:10 | REP ---
ACUTE ABDOMINAL SERIES: 07/19/2018. Clinical history: Epigastric pain, gas. Comparison: 09/26/2013. Findings: PA chest: Lungs remain well inflated without pleural effusion or definite infiltrate. Heart is not grossly enlarged. There is a right aortic arch unchanged. Airway is intact. Bones unremarkable. No free air. Flat and upright abdomen. Multiple pelvic phleboliths are again noted. There is no definite calcifications over the renal fossae or expected course of the ureters. Scattered stool and gas in the colon. No dilated loops, air-fluid levels, masses or free air. Loop of small bowel in the left upper quadrant, gas filled and slightly distended with paucity of gas otherwise. Bones without acute finding. There is no visible hiatal hernia. Impression: 1. Nonspecific gas pattern. There is no obstruction, mass or free air. Solitary loop of mildly prominent small bowel left upper quadrant gas filled may reflect some focal ileus. No obstruction. No free air. 2. Pelvic phleboliths noted. No abnormal calcifications over the renal fossae or expected course of the ureters. 3. PA chest unchanged. Right-sided aortic arch as anatomic variation. Nothing acute. Electronically Signed by Frankie Laird MD 07/19/2018 05:54 P
--- NOTE | 2018-07-19 12:12 | REP ---
CHEST ONE-VIEW: 07/19/2018. Comparison: Acute abdominal series 07/19/2018, chest x-ray 03/21/2018. Clinical history: Epigastric pain, gas. Findings: Lateral chest reviewed in conjunction with a PA chest from the acute abdominal series and compared to 03/2018 prior shows the lungs well inflated. No definite infiltrate. Heart is not enlarged. There is a right-sided aortic arch. No pleural effusion or pleural thickening seen. Impression: 1. No acute cardiopulmonary disease, stable chest. Right-sided aortic arch as anatomic variation. Electronically Signed by Frankie Laird MD 07/19/2018 05:55 P
[2018-07-19 12:35] LABS: ALBUMIN 3.7 GM/DL (3.2-5.2); ALT/SGPT 19 U/L (12-78); BILIRUBIN,TOTAL 0.2 MG/DL (0.2-1.0); BLOOD UREA NITROGEN 10 MG/DL (7-18); CALCIUM LEVEL 10.1 MG/DL (8.5-10.1); CARBON DIOXIDE LEVEL 22 MEQ/L (21-32); CHLORIDE LEVEL 109 MEQ/L (98-107); CK-MB VALUE MASS < 1.0 NG/ML (<3.6); CPK CREATINE PHOSPHOKINASE 60 U/L (26-192); CREATININE FOR GFR 0.68 MG/DL (0.55-1.30); GLOMERULAR FILTRATION RATE > 60.0 (>60); GLUCOSE, FASTING 94 MG/DL (70-100); LIPASE 167 U/L (73-393); MB/CK RELATIVE INDEX 1.67 (< OR =4); POTASSIUM SERUM 4.5 MEQ/L (3.5-5.1); SODIUM LEVEL 138 MEQ/L (136-145); TOTAL PROTEIN 7.8 GM/DL (6.4-8.2); TROPONIN I < 0.02 NG/ML (< 0.10)
[2018-07-19] MEDS ORDERED: SIME180C PO (13:15)
[2018-07-19] MEDS ORDERED: RANI15TA PO (13:15)
[2018-07-19] MEDS ORDERED: REGL10TA6 PO (13:15)
[2018-07-19] MEDS ORDERED: DICY1CAP8 PO (13:15)
[2018-07-19] MEDS ORDERED: METOCLOPRAMIDE 10 MG TAB PO ONE (13:15)
[2018-07-19] MEDS ORDERED: [UNRECOGNIZED DRUG - CODE] PO (13:16)
[2018-07-19 14:09] VITALS: BP 137/96
== END 2018-07-19 14:10 | disposition home or self-care (01) ==
LOC: M ED 10:12
DX: K56.7 Ileus, unspecified (principal); R14.1 Gas pain; R51 Headache; Z86.718 Personal history of other venous thrombosis and embolism; D68.51 Activated protein C resistance; D64.9 Anemia, unspecified; F17.210 Nicotine dependence, cigarettes, uncomplicated; Z88.5 Allergy status to narcotic agent; Z88.8 Allergy status to other drugs, medicaments and biological substances; Z91.040 Latex allergy status; Z79.899 Other long term (current) drug therapy; Z79.01 Long term (current) use of anticoagulants

== ENCOUNTER → 2018-07-20 | Outpatient (REF) | payer OTHER ==
[~2018-07-20] MED LIST changes: +DICY1CAP8 PO; +RANI15TA PO; +REGL10TA6 PO; +SIME180C PO; +[UNRECOGNIZED DRUG - CODE] PO
[2018-07-20 18:58] LABS: INR 2.07; PROTHROMBIN TIME 23.7 SECONDS (12.1-14.4)
== END ==
LOC: M LAB REF 17:09
PROVIDERS: ATTEND Nurse Practitioner Family
DX: D68.51 Activated protein C resistance (principal); Z79.01 Long term (current) use of anticoagulants

== ENCOUNTER → 2018-08-03 | Outpatient (REF) | payer OTHER ==
[2018-08-03 12:21] LABS: INR 1.95; PROTHROMBIN TIME 22.6 SECONDS (12.1-14.4)
== END ==
LOC: M LAB REF 11:43
PROVIDERS: ATTEND Nurse Practitioner Family
DX: Z79.01 Long term (current) use of anticoagulants (principal); D68.51 Activated protein C resistance

== ENCOUNTER → 2018-08-10 | Outpatient (REF) | payer OTHER, MEDICAID ==
[~2018-08-10] MED LIST changes: +MOME50SP NARES
[2018-08-10 13:49] LABS: INR 1.76; PROTHROMBIN TIME 20.8 SECONDS (12.1-14.4)
== END ==
LOC: M LAB REF 12:20
PROVIDERS: ATTEND Nurse Practitioner Family
DX: Z79.01 Long term (current) use of anticoagulants (principal); D68.51 Activated protein C resistance

== ENCOUNTER 2018-08-22 21:49 | Emergency (ER) | payer MEDICAID, OTHER ==
[~2018-08-22] VITALS: Ht 162.6 cm; Wt 109.1 kg
[~2018-08-22 21:49] MED LIST changes: -MOME50SP NARES
[2018-08-22] MEDS ORDERED: MOME50SP NARES (22:43)
[2018-08-22 23:05] VITALS: BP 128/86
== END 2018-08-22 23:06 | disposition home or self-care (01) ==
LOC: M ED 21:49
DX: H74.8X1 Other specified disorders of right middle ear and mastoid (principal); Z79.01 Long term (current) use of anticoagulants; Z79.899 Other long term (current) drug therapy; Z88.6 Allergy status to analgesic agent; Z88.5 Allergy status to narcotic agent; Z91.040 Latex allergy status

== ENCOUNTER 2018-10-24 19:05 | Emergency (ER) | payer OTHER ==
[~2018-10-24] VITALS: Ht 162.6 cm; Wt 109.1 kg
[~2018-10-24 19:05] MED LIST changes: +MOME50SP NARES
[2018-10-24 20:19] VITALS: BP 141/85
[2018-10-24] MEDS ORDERED: CYCLOBENZAPRINE 10 MG TAB PO ONE (20:45)
[2018-10-24] MEDS ORDERED: CYCL10TA PO (20:47)
== END 2018-10-24 20:56 | disposition home or self-care (01) ==
LOC: M ED 19:05
DX: M62.838 Other muscle spasm (principal); Z86.718 Personal history of other venous thrombosis and embolism; Z72.0 Tobacco use; Z79.01 Long term (current) use of anticoagulants; Z88.6 Allergy status to analgesic agent; Z88.5 Allergy status to narcotic agent; Z91.040 Latex allergy status

== ENCOUNTER → 2018-11-18 | Outpatient (REF) | payer OTHER ==
[2018-11-18 12:14] LABS: INR 1.43; PROTHROMBIN TIME 17.1 SECONDS (11.8-14.0)
== END ==
LOC: M LAB REF 11:31
PROVIDERS: ATTEND Nurse Practitioner Family
DX: Z79.01 Long term (current) use of anticoagulants (principal); D68.51 Activated protein C resistance

== ENCOUNTER → 2018-12-27 | Outpatient (REF) | payer OTHER ==
[~2018-12-27] MED LIST changes: +PSEU120T32 PO; -[UNRECOGNIZED DRUG - CODE] PO
[2018-12-27 15:56] LABS: AMORPHOUS SEDIMENT SMALL (NEGATIVE); APPEARANCE, URINE TURBID (CLEAR); BACTERIA, URINE AUTO 1+ (NEGATIVE); BILIRUBIN, URINE AUTO NEGATIVE (NEGATIVE); BLOOD, URINE BLOOD 1+ (NEGATIVE); COLOR, URINE AMBER (YELLOW); GLUCOSE, URINE (UA) AUTO NEGATIVE (NEGATIVE); KETONE, URINE AUTO NEGATIVE (NEGATIVE); LEUKOCYTE ESTERASE, URINE AUTO 3+ (NEGATIVE); MUCUS, URINE SMALL (NEGATIVE); NITRITE, URINE AUTO NEGATIVE (NEGATIVE); PROTEIN, URINE AUTO NEGATIVE (NEGATIVE); RBC, URINE AUTO 7 /HPF (0-3); SPECIFIC GRAVITY URINE AUTO 1.019 (1.002-1.035); SQUAMOUS EPITHELIAL CELL UR AU 19 /HPF (0-6); UROBILINOGEN, URINE AUTO 0.2 mg/dL (0.0-2.0); WBC, URINE AUTO 53 /HPF (0-3)
[2018-12-27 16:05] LABS: BASO # 0.1 10^3/uL (0.0-0.2); BASO % 0.9 % (0.0-1.0); EOS # 0.5 10^3/uL (0.0-0.50); EOS % 5.9 % (0.0-3.0); HEMOGLOBIN 9.2 g/dl (12.0-15.5); LYMPH # 1.9 10^3/uL (1.5-4.5); LYMPH % 20.7 % (24.0-44.0); MEAN CORPUSCULAR HEMOGLOBIN 21.3 pg (27.0-33.0); MEAN CORPUSCULAR HGB CONC 28.8 g/dl (32.0-36.5); MEAN CORPUSCULAR VOLUME 74.2 fl (80.0-96.0); MONO # 0.3 10^3/uL (0.0-0.8); MONO % 3.7 % (0.0-5.0); NEUTROPHILS # 6.2 10^3/uL (1.8-7.7); NEUTROPHILS % 68.5 % (36.0-66.0); PLATELET COUNT, AUTOMATED 333 10^3/uL (150-450); RED BLOOD COUNT 4.31 10^6/uL (4.00-5.40)
[2018-12-27 16:16] LABS: ALBUMIN 3.4 GM/DL (3.2-5.2); ALT/SGPT 20 U/L (12-78); BILIRUBIN,TOTAL 0.1 MG/DL (0.2-1.0); BLOOD UREA NITROGEN 14 MG/DL (7-18); CARBON DIOXIDE LEVEL 22 MEQ/L (21-32); CHLORIDE LEVEL 111 MEQ/L (98-107); CHOLESTEROL LEVEL 197 MG/DL (<200); CHOLESTEROL RISK RATIO 5.051 (<5); FREE T4 0.73 NG/DL (0.76-1.46); GLOMERULAR FILTRATION RATE > 60.0 (>60); GLUCOSE, FASTING 126 MG/DL (70-100); HDL CHOLESTEROL 39 MG/DL (>40); LDL CHOLESTEROL 127 MG/DL (<100); NON-HDL-C 158 MG/DL; POTASSIUM SERUM 4.2 MEQ/L (3.5-5.1); SODIUM LEVEL 141 MEQ/L (136-145); TOTAL PROTEIN 7.3 GM/DL (6.4-8.2); TRIGLYCERIDES LEVEL 155 MG/DL (<150)
[2018-12-27 16:18] LABS: TOTAL 25(OH) VITAMIN D 19.5 NG/ML (30.0-100.0)
[2018-12-30 00:06] LABS: Lyme Disease IgG/IgM Antibodie <0.91 ISR (0.00-0.90); Lyme Disease IgM Ab Quantitati <0.80 index (0.00-0.79)
== END ==
LOC: M LAB REF 15:27
PROVIDERS: ATTEND Family Medicine
DX: Z13.228 Encounter for screening for other metabolic disorders (principal)

== ENCOUNTER 2019-02-06 11:19 | Emergency (ER) | payer OTHER ==
[~2019-02-06] VITALS: Ht 165.1 cm; Wt 119.5 kg
[~2019-02-06 11:19] MED LIST changes: +CLAR10CA3 PO; +ELIQ5TAB PO; +MULTCAP PO
[2019-02-06 12:22] LABS: BASO # 0.1 10^3/uL (0.0-0.2); BASO % 1.3 % (0.0-1.0); EOS # 0.5 10^3/uL (0.0-0.5); EOS % 6.7 % (0.0-3.0); HEMATOCRIT 34.7 % (36.0-47.0); HEMOGLOBIN 10.3 g/dl (12.0-15.5); LYMPH # 1.9 10^3/uL (1.5-5.0); MEAN CORPUSCULAR HEMOGLOBIN 22.6 pg (27.0-33.0); MEAN CORPUSCULAR HGB CONC 29.7 g/dl (32.0-36.5); MEAN CORPUSCULAR VOLUME 76.1 fl (80.0-96.0); MONO # 0.5 10^3/uL (0.0-0.8); NEUTROPHILS # 4.9 10^3/uL (1.5-8.5); NEUTROPHILS % 61.5 % (36.0-66.0); PLATELET COUNT, AUTOMATED 286 10^3/uL (150-450); RED BLOOD COUNT 4.56 10^6/uL (4.00-5.40); WHITE BLOOD COUNT 7.9 10^3/uL (4.0-10.0)
[2019-02-06 12:42] LABS: ERYTHROCYTE SEDIMENTATION RATE 47 mm/hr (0-20)
[2019-02-06] MEDS ORDERED: CLEO300C2 PO (12:55)
[2019-02-06 13:06] VITALS: BP 109/73
== END 2019-02-06 13:08 | disposition home or self-care (01) ==
LOC: M ED 11:19
DX: N61.1 Abscess of the breast and nipple (principal); G43.909 Migraine, unspecified, not intractable, without status migrainosus; F17.210 Nicotine dependence, cigarettes, uncomplicated; D64.9 Anemia, unspecified; Z88.5 Allergy status to narcotic agent; Z88.6 Allergy status to analgesic agent; Z91.040 Latex allergy status; Z86.718 Personal history of other venous thrombosis and embolism; Z86.59 Personal history of other mental and behavioral disorders; Z79.01 Long term (current) use of anticoagulants; Z79.899 Other long term (current) drug therapy

== ENCOUNTER 2019-02-23 14:23 | Emergency (ER) | payer OTHER ==
[~2019-02-23] VITALS: Ht 162.6 cm; Wt 120.1 kg
[~2019-02-23 14:23] MED LIST changes: +CLEO300C2 PO
[2019-02-23] MEDS ORDERED: FERR325T81 PO (14:27)
[2019-02-23] MEDS ORDERED: GI COCKTAIL 50ML BTL(HYOSCYAMINE/MAALOX/LIDOCAINE VISCOUS)(1:3:1) PO ONE (15:30)
[2019-02-23 15:45] LABS: BASO # 0.1 10^3/uL (0.0-0.2); BASO % 0.9 % (0.0-1.0); EOS # 0.7 10^3/uL (0.0-0.5); EOS % 5.1 % (0.0-3.0); HEMOGLOBIN 10.1 g/dl (12.0-15.5); LYMPH # 2.1 10^3/uL (1.5-5.0); LYMPH % 16.6 % (24.0-44.0); MEAN CORPUSCULAR HEMOGLOBIN 23.2 pg (27.0-33.0); MEAN CORPUSCULAR HGB CONC 29.7 g/dl (32.0-36.5); MONO # 0.7 10^3/uL (0.0-0.8); MONO % 5.1 % (0.0-5.0); NEUTROPHILS # 9.1 10^3/uL (1.5-8.5); NEUTROPHILS % 71.8 % (36.0-66.0); PLATELET COUNT, AUTOMATED 423 10^3/uL (150-450); RED BLOOD COUNT 4.36 10^6/uL (4.00-5.40); WHITE BLOOD COUNT 12.7 10^3/uL (4.0-10.0)
--- NOTE | 2019-02-23 15:50 | REP ---
Chest x-ray: Two views. History: Short of breath and chest pain. Comparison study July 19, 2018. A right aortic arch is again noted. The cardiac apex and gastric air bubble are left-sided. The lungs are well inflated and clear. Pleural angles are sharp. Heart size is normal. Pulmonary vasculature is not increased. Impression: Right aortic arch again noted. Otherwise no acute disease. Electronically Signed by Francis Chand MD 02/23/2019 03:42 P
[2019-02-23 16:14] LABS: BLOOD UREA NITROGEN 8 MG/DL (7-18); CARBON DIOXIDE LEVEL 25 MEQ/L (21-32); CHLORIDE LEVEL 108 MEQ/L (98-107); CK-MB VALUE MASS < 1.0 NG/ML (<3.6); CPK CREATINE PHOSPHOKINASE 58 U/L (26-192); CREATININE FOR GFR 0.73 MG/DL (0.55-1.30); GLOMERULAR FILTRATION RATE > 60.0 (>60); GLUCOSE, FASTING 95 MG/DL (70-100); MB/CK RELATIVE INDEX 1.72 (< OR =4); POTASSIUM SERUM 4.1 MEQ/L (3.5-5.1); SODIUM LEVEL 142 MEQ/L (136-145); TROPONIN I < 0.02 NG/ML (< 0.10)
[2019-02-23] MEDS ORDERED: PRIL20TA2 PO (17:04)
[2019-02-23 17:11] VITALS: BP 147/82
--- NOTE | 2019-02-23 20:48 | ECGEPIP ---
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
== END 2019-02-23 17:16 | disposition home or self-care (01) ==
LOC: M ED 14:23
DX: K29.70 Gastritis, unspecified, without bleeding (principal); K21.9 Gastro-esophageal reflux disease without esophagitis; Z79.899 Other long term (current) drug therapy; Z79.01 Long term (current) use of anticoagulants; Z88.5 Allergy status to narcotic agent; Z88.8 Allergy status to other drugs, medicaments and biological substances; Z91.040 Latex allergy status; F17.210 Nicotine dependence, cigarettes, uncomplicated

== ENCOUNTER → 2019-05-09 | Outpatient (REF) | payer OTHER ==
[~2019-05-09] MED LIST changes: +FERR325T81 PO; +PRIL20TA2 PO
[2019-05-09 19:35] LABS: ALBUMIN 3.4 GM/DL (3.2-5.2); ALT/SGPT 17 U/L (12-78); BILIRUBIN,TOTAL 0.2 MG/DL (0.2-1.0); BLOOD UREA NITROGEN 12 MG/DL (7-18); CALCIUM LEVEL 9.8 MG/DL (8.5-10.1); CARBON DIOXIDE LEVEL 24 MEQ/L (21-32); CHLORIDE LEVEL 111 MEQ/L (98-107); CHOLESTEROL LEVEL 175 MG/DL (<200); CHOLESTEROL RISK RATIO 4.605 (<5); CREATININE FOR GFR 0.75 MG/DL (0.55-1.30); FREE T4 0.82 NG/DL (0.76-1.46); GLOMERULAR FILTRATION RATE > 60.0 (>60); GLUCOSE, FASTING 88 MG/DL (70-100); HDL CHOLESTEROL 38 MG/DL (>40); LDL CHOLESTEROL 121 MG/DL (<100); NON-HDL-C 137 MG/DL; POTASSIUM SERUM 4.4 MEQ/L (3.5-5.1); SODIUM LEVEL 140 MEQ/L (136-145); TOTAL PROTEIN 7.2 GM/DL (6.4-8.2); TRIGLYCERIDES LEVEL 78 MG/DL (<150)
== END ==
LOC: M LAB REF 18:44
PROVIDERS: ATTEND Family Medicine
DX: E78.5 Hyperlipidemia, unspecified (principal); E07.89 Other specified disorders of thyroid

== ENCOUNTER → 2019-07-04 | Outpatient (CLI) | payer OTHER ==
--- NOTE | 2019-07-04 10:50 | REP ---
Right upper extremity deep vein duplex ultrasound: The deep veins demonstrate normal compression, normal Doppler color flow and normal Doppler waveforms with respiration augmentation at multiple levels from the brachial veins to the jugular vein. Impression: There is no deep vein thrombus. There is no change from the comparison study of 06/25/2018. Electronically Signed by Doug Cisse MD 07/04/2019 10:41 A
== END ==
LOC: M RAD 09:47
PROVIDERS: ATTEND Nurse Practitioner Family
DX: M79.601 Pain in right arm (principal); Z86.718 Personal history of other venous thrombosis and embolism

== ENCOUNTER 2019-07-21 00:33 | Emergency (ER) | payer OTHER ==
[~2019-07-21] VITALS: Ht 162.6 cm; Wt 118.2 kg
[2019-07-21 00:33] VITALS: BP 161/76
--- NOTE | 2019-07-21 01:27 | REPVR ---
PROCEDURE INFORMATION: Exam: US Duplex Left Lower Extremity Veins, Limited Exam date and time: 07/21/2019 12:59 AM Age: 34 years old Clinical indication: Pain; Leg, upper; Left; Additional info: Left lower leg pain and HX of dvt's TECHNIQUE: Imaging protocol: Real-time Duplex ultrasound of the Left Lower Extremity with 2-D wall scale, color Doppler flow and spectral waveform analysis with image documentation. Limited exam focused on the left lower extremity veins. COMPARISON: US Duplex, Ext,LOWER veins,unilat 07/05/2014 4:52 AM FINDINGS: Left deep veins: Unremarkable. The common femoral, femoral and popliteal veins are patent without thrombus. Normal compressibility, augmentation response and Doppler waveforms. Left superficial veins: Unremarkable. Saphenofemoral junction is patent without thrombus. Soft tissues: Unremarkable. IMPRESSION: No sonographic evidence of deep vein thrombosis. Electronically signed by: David Cummins On 07/21/2019 01:27:17 AM
== END 2019-07-21 01:54 | disposition home or self-care (01) ==
LOC: M ED 00:33
DX: R25.2 Cramp and spasm (principal); Z86.718 Personal history of other venous thrombosis and embolism; Z79.899 Other long term (current) drug therapy; Z79.01 Long term (current) use of anticoagulants; Z88.5 Allergy status to narcotic agent; Z88.8 Allergy status to other drugs, medicaments and biological substances; Z91.040 Latex allergy status; F17.210 Nicotine dependence, cigarettes, uncomplicated

== ENCOUNTER → 2019-11-23 | Outpatient (REF) | payer OTHER ==
[~2019-11-23] MED LIST changes: -COUM7.5T PO; +COUM7.5T6 PO; +CYCL-707 PO; -CYCL10TA PO
[2019-11-23 14:55] LABS: ALBUMIN 3.2 GM/DL (3.2-5.2); ALT/SGPT 21 U/L (12-78); BILIRUBIN,TOTAL 0.3 MG/DL (0.2-1.0); BLOOD UREA NITROGEN 12 MG/DL (7-18); CALCIUM LEVEL 9.7 MG/DL (8.5-10.1); CARBON DIOXIDE LEVEL 22 MEQ/L (21-32); CHLORIDE LEVEL 108 MEQ/L (98-107); CHOLESTEROL LEVEL 177 MG/DL (<200); CHOLESTEROL RISK RATIO 4.783 (<5); CREATININE FOR GFR 0.67 MG/DL (0.55-1.30); GLOMERULAR FILTRATION RATE > 60.0 (>60); GLUCOSE, FASTING 91 MG/DL (70-100); HDL CHOLESTEROL 37 MG/DL (>40); IRON (FE) 19 UG/DL (50-170); LDL CHOLESTEROL 118 MG/DL (<100); NON-HDL-C 140 MG/DL; POTASSIUM SERUM 4.3 MEQ/L (3.5-5.1); SODIUM LEVEL 138 MEQ/L (136-145); TOTAL PROTEIN 7.1 GM/DL (6.4-8.2); TRIGLYCERIDES LEVEL 109 MG/DL (<150)
[2019-11-23 15:00] LABS: BASO # 0.1 10^3/uL (0.0-0.2); BASO % 0.7 % (0.0-1.0); EOS # 0.6 10^3/uL (0.0-0.5); EOS % 6.3 % (0.0-3.0); HEMATOCRIT 34.3 % (36.0-47.0); HEMOGLOBIN 9.8 g/dl (12.0-15.5); LYMPH # 2.4 10^3/uL (1.5-5.0); LYMPH % 24.2 % (24.0-44.0); MEAN CORPUSCULAR HEMOGLOBIN 21.1 pg (27.0-33.0); MEAN CORPUSCULAR HGB CONC 28.6 g/dl (32.0-36.5); MEAN CORPUSCULAR VOLUME 73.9 fl (80.0-96.0); MONO # 0.7 10^3/uL (0.0-0.8); MONO % 7.2 % (0.0-5.0); NEUTROPHILS # 6.1 10^3/uL (1.5-8.5); NEUTROPHILS % 61.1 % (36.0-66.0); PLATELET COUNT, AUTOMATED 369 10^3/uL (150-450); RED BLOOD COUNT 4.64 10^6/uL (4.00-5.40)
== END ==
LOC: M LAB REF 11:19
PROVIDERS: ATTEND Family Medicine Addiction Medicine
DX: E55.9 Vitamin D deficiency, unspecified (principal); D50.9 Iron deficiency anemia, unspecified; E07.89 Other specified disorders of thyroid

== ENCOUNTER → 2019-12-01 | Outpatient (REF) | payer OTHER ==
[2019-12-01 19:03] LABS: APPEARANCE, URINE HAZY (CLEAR); BACTERIA, URINE AUTO NEGATIVE (NEGATIVE); BILIRUBIN, URINE AUTO NEGATIVE (NEGATIVE); BLOOD, URINE BLOOD NEGATIVE (NEGATIVE); COLOR, URINE YELLOW (YELLOW); GLUCOSE, URINE (UA) AUTO NEGATIVE (NEGATIVE); KETONE, URINE AUTO NEGATIVE (NEGATIVE); LEUKOCYTE ESTERASE, URINE AUTO NEGATIVE (NEGATIVE); MUCUS, URINE SMALL (NEGATIVE); NITRITE, URINE AUTO NEGATIVE (NEGATIVE); PROTEIN, URINE AUTO NEGATIVE (NEGATIVE); RBC, URINE AUTO 0 /HPF (0-3); SPECIFIC GRAVITY URINE AUTO 1.018 (1.002-1.035); SQUAMOUS EPITHELIAL CELL UR AU 2 /HPF (0-6); UROBILINOGEN, URINE AUTO 0.2 mg/dL (0.0-2.0); WBC, URINE AUTO 0 /HPF (0-3)
== END ==
LOC: M LAB REF 17:21
PROVIDERS: ATTEND Family Medicine Addiction Medicine
DX: R35.0 Frequency of micturition (principal)

== ENCOUNTER → 2020-07-18 | Outpatient (REF) | payer OTHER ==
[2020-07-18 17:04] LABS: BASO # 0.1 10^3/uL (0.0-0.2); BASO % 1.1 % (0.0-1.0); EOS # 0.6 10^3/uL (0.0-0.5); EOS % 6.5 % (0.0-3.0); HEMATOCRIT 32.6 % (36.0-47.0); HEMOGLOBIN 9.5 g/dl (12.0-15.5); LYMPH # 2.2 10^3/uL (1.5-5.0); LYMPH % 25.9 % (24.0-44.0); MEAN CORPUSCULAR HEMOGLOBIN 23.4 pg (27.0-33.0); MEAN CORPUSCULAR HGB CONC 29.1 g/dl (32.0-36.5); MEAN CORPUSCULAR VOLUME 80.3 fl (80.0-96.0); MONO # 0.5 10^3/uL (0.0-0.8); MONO % 5.3 % (2.0-8.0); NEUTROPHILS # 5.1 10^3/uL (1.5-8.5); NEUTROPHILS % 60.7 % (36.0-66.0); PLATELET COUNT, AUTOMATED 349 10^3/uL (150-450); RED BLOOD COUNT 4.06 10^6/uL (4.00-5.40); WHITE BLOOD COUNT 8.4 10^3/uL (4.0-10.0)
[2020-07-18 17:22] LABS: ALBUMIN 3.3 GM/DL (3.2-5.2); ALT/SGPT 22 U/L (12-78); BILIRUBIN,TOTAL 0.1 MG/DL (0.2-1.0); BLOOD UREA NITROGEN 13 MG/DL (7-18); CARBON DIOXIDE LEVEL 24 MEQ/L (21-32); CHLORIDE LEVEL 108 MEQ/L (98-107); CHOLESTEROL LEVEL 178 MG/DL (<200); CREATININE FOR GFR 0.76 MG/DL (0.55-1.30); FERRITIN 5 NG/ML (8-252); GLOMERULAR FILTRATION RATE > 60.0 (>60); GLUCOSE, FASTING 98 MG/DL (70-100); HDL CHOLESTEROL 37 MG/DL (>40); IRON (FE) 13 UG/DL (50-170); LDL CHOLESTEROL 119 MG/DL (<100); NON-HDL-C 141 MG/DL; PERCENT SATURATION 2.9 % (13.2-45.0); POTASSIUM SERUM 4.3 MEQ/L (3.5-5.1); SODIUM LEVEL 139 MEQ/L (136-145); TOTAL 25(OH) VITAMIN D 18.7 NG/ML (30.0-100.0); TOTAL IRON BINDING CAPACITY 447 UG/DL (250-450); TOTAL PROTEIN 7.1 GM/DL (6.4-8.2); TRIGLYCERIDES LEVEL 109 MG/DL (<150)
== END ==
LOC: M LAB REF 16:16
PROVIDERS: ATTEND Physician Assistant
DX: E78.5 Hyperlipidemia, unspecified (principal); D50.9 Iron deficiency anemia, unspecified; F41.1 Generalized anxiety disorder

== ENCOUNTER → 2020-08-04 | Outpatient (REF) | payer OTHER ==
[2020-08-04 18:47] LABS: APPEARANCE, URINE HAZY (CLEAR); BACTERIA, URINE AUTO 1+ (NEGATIVE); BILIRUBIN, URINE AUTO NEGATIVE (NEGATIVE); BLOOD, URINE BLOOD 1+ (NEGATIVE); COLOR, URINE YELLOW (YELLOW); GLUCOSE, URINE (UA) AUTO NEGATIVE (NEGATIVE); KETONE, URINE AUTO NEGATIVE (NEGATIVE); LEUKOCYTE ESTERASE, URINE AUTO 3+ (NEGATIVE); MUCUS, URINE SMALL (NEGATIVE); NITRITE, URINE AUTO NEGATIVE (NEGATIVE); PROTEIN, URINE AUTO NEGATIVE (NEGATIVE); RBC, URINE AUTO 2 /HPF (0-3); SPECIFIC GRAVITY URINE AUTO 1.012 (1.002-1.035); SQUAMOUS EPITHELIAL CELL UR AU 5 /HPF (0-6); UROBILINOGEN, URINE AUTO 0.2 mg/dL (0.0-2.0); WBC, URINE AUTO 12 /HPF (0-3)
== END ==
LOC: M LAB REF 17:58
PROVIDERS: ATTEND Physician Assistant Medical
DX: N39.0 Urinary tract infection, site not specified (principal)

== ENCOUNTER → 2020-08-13 | Outpatient (REF) | payer OTHER ==
[2020-08-13 17:10] LABS: BASO # 0.1 10^3/uL (0.0-0.2); BASO % 1.2 % (0.0-1.0); EOS # 0.5 10^3/uL (0.0-0.5); EOS % 6.8 % (0.0-3.0); HEMATOCRIT 39.5 % (36.0-47.0); HEMOGLOBIN 11.9 g/dl (12.0-15.5); LYMPH # 1.4 10^3/uL (1.5-5.0); LYMPH % 19.9 % (24.0-44.0); MEAN CORPUSCULAR HEMOGLOBIN 25.6 pg (27.0-33.0); MEAN CORPUSCULAR HGB CONC 30.1 g/dl (32.0-36.5); MEAN CORPUSCULAR VOLUME 85.1 fl (80.0-96.0); MONO # 0.5 10^3/uL (0.0-0.8); MONO % 6.6 % (2.0-8.0); NEUTROPHILS # 4.4 10^3/uL (1.5-8.5); NEUTROPHILS % 65.1 % (36.0-66.0); PLATELET COUNT, AUTOMATED 299 10^3/uL (150-450); RED BLOOD COUNT 4.64 10^6/uL (4.00-5.40); WHITE BLOOD COUNT 6.8 10^3/uL (4.0-10.0)
[2020-08-13 17:27] LABS: PERCENT SATURATION 39.4 % (13.2-45.0)
== END ==
LOC: M LAB REF 16:30
PROVIDERS: ATTEND Physician Assistant
DX: D50.9 Iron deficiency anemia, unspecified (principal)

== ENCOUNTER 2020-09-21 19:38 | Emergency (ER) | payer OTHER ==
[~2020-09-21] VITALS: Ht 165.1 cm; Wt 121.4 kg
[~2020-09-21 19:38] MED LIST changes: -SIME180C PO; +SIME180C25 PO
[2020-09-21 19:40] VITALS: BP 135/91
[2020-09-21] MEDS ORDERED: DOXY100C37 (19:46)
[2020-09-21] MEDS ORDERED: HYDR-3363 (19:46)
== END 2020-09-21 20:33 | disposition left against medical advice (07) ==
LOC: M ED 19:38
DX: Z53.21 Procedure and treatment not carried out due to patient leaving prior to being seen by health care provider (principal)

== ENCOUNTER 2020-09-21 21:36 | Emergency (ER) | payer OTHER ==
[~2020-09-21] VITALS: Ht 165.1 cm; Wt 121.8 kg
[~2020-09-21 21:36] MED LIST changes: +DOXY100C37; +HYDR-3363
[2020-09-21] MEDS ORDERED: DOXYCYCLINE HYCLATE 100MG TABLET PO ONE (23:20)
[2020-09-21 23:40] VITALS: BP 128/88
== END 2020-09-21 23:43 | disposition home or self-care (01) ==
LOC: M ED 21:36
DX: L03.314 Cellulitis of groin (principal); G43.909 Migraine, unspecified, not intractable, without status migrainosus; D64.9 Anemia, unspecified; Z88.5 Allergy status to narcotic agent; F41.0 Panic disorder [episodic paroxysmal anxiety]; F40.00 Agoraphobia, unspecified; Z88.6 Allergy status to analgesic agent; Z91.040 Latex allergy status; Z86.718 Personal history of other venous thrombosis and embolism; Z79.01 Long term (current) use of anticoagulants; Z79.899 Other long term (current) drug therapy

== ENCOUNTER 2020-10-08 21:11 | Emergency (ER) | payer OTHER ==
[2020-10-08] MEDS ORDERED: NS 1,000 ML IV ONE (22:20)
[2020-10-08 22:52] LABS: BASO # 0.1 10^3/uL (0.0-0.2); BASO % 0.7 % (0.0-1.0); EOS # 0.6 10^3/uL (0.0-0.5); EOS % 4.8 % (0.0-3.0); HEMATOCRIT 36.3 % (36.0-47.0); HEMOGLOBIN 10.9 g/dl (12.0-15.5); LYMPH # 2.4 10^3/uL (1.5-5.0); LYMPH % 19.6 % (24.0-44.0); MEAN CORPUSCULAR HEMOGLOBIN 24.3 pg (27.0-33.0); MEAN CORPUSCULAR VOLUME 80.8 fl (80.0-96.0); MONO # 0.9 10^3/uL (0.0-0.8); MONO % 7.2 % (2.0-8.0); NEUTROPHILS # 8.1 10^3/uL (1.5-8.5); NEUTROPHILS % 67.3 % (36.0-66.0); PLATELET COUNT, AUTOMATED 312 10^3/uL (150-450); RED BLOOD COUNT 4.49 10^6/uL (4.00-5.40)
[2020-10-08 23:04] LABS: INR 0.98; PROTHROMBIN TIME 13.2 SECONDS (12.5-14.3)
[2020-10-08 23:05] LABS: PARTIAL THROMBOPLASTIN TIME 30.2 SECONDS (24.2-38.5)
[2020-10-08 23:19] LABS: HCG, SERUM QUALITATIVE NEGATIVE (NEGATIVE)
[2020-10-08 23:27] LABS: RSV AMPLIFICATION NEGATIVE (NEGATIVE)
[2020-10-08 23:28] LABS: ALBUMIN 3.3 GM/DL (3.2-5.2); ALT/SGPT 19 U/L (12-78); BILIRUBIN,DIRECT < 0.1 MG/DL (0.0-0.2); BILIRUBIN,TOTAL < 0.1 MG/DL (0.2-1.0); BLOOD UREA NITROGEN 13 MG/DL (7-18); CARBON DIOXIDE LEVEL 25 MEQ/L (21-32); CHLORIDE LEVEL 110 MEQ/L (98-107); CK-MB VALUE MASS < 1.0 NG/ML (<3.6); CPK CREATINE PHOSPHOKINASE 55 U/L (26-192); CREATININE FOR GFR 0.74 MG/DL (0.55-1.30); FREE T4 0.73 NG/DL (0.76-1.46); GLOMERULAR FILTRATION RATE > 60.0 (>60); GLUCOSE, FASTING 105 MG/DL (70-100); LIPASE 138 U/L (73-393); MB/CK RELATIVE INDEX 1.82 (< OR =4); NT-PRO BNP 12 PG/ML (<125); POTASSIUM SERUM 3.9 MEQ/L (3.5-5.1); SODIUM LEVEL 140 MEQ/L (136-145); TOTAL PROTEIN 7.3 GM/DL (6.4-8.2); TROPONIN I < 0.02 NG/ML (< 0.10)
--- NOTE | 2020-10-08 23:57 | REPVR ---
PROCEDURE INFORMATION: Exam: XR Chest Exam date and time: 10/08/2020 11:38 PM Age: 35 years old Clinical indication: Chest pain TECHNIQUE: Imaging protocol: XR of the chest. Views: 1 view. COMPARISON: 1. CR Abdomen,Flat Upright,PA CHEST 07/19/2018 11:[address] ANGIO CHEST 03/21/2018 2:26:14 AM FINDINGS: Lungs: Unremarkable. No consolidation. No pulmonary edema. Pleural spaces: Unremarkable. No pleural effusion. No pneumothorax. Heart/Mediastinum: No cardiomegaly. There is a right-sided aortic arch, which is similar in appearance compared to the prior chest x-ray and 07/19/2018. 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 Bones/joints: Unremarkable. IMPRESSION: No acute findings. Electronically signed by: Gio Lynch On 10/08/2020 23:57:16 PM
[2020-10-09 01:30] VITALS: BP 104/56
--- NOTE | 2020-10-10 07:26 | ECGEPIP ---
[facility] - ED Test Date: 2020-10-08 Pat Name: JOSE KRISHNAMURTHY Department: Room: - Gender: Female Team Facilitator: MORTEZA : 1985 Requested By: FAROOQ Riddle Order Number: [id number] Reading MD: Dario Zafar Measurements Intervals [place] Rate: 104 P: 54 DC: 170 QRS: 53 QRSD: 78 T: 67 QT: 322 QTc: 423 Interpretive Statements Sinus tachycardia INCOMPLETE RIGHT BUNDLE BRANCH BLOCK SIMILAR TO 02/23/19 Electronically Signed on 10-10-2020 7:25:58 EDT by Dario Zafar
== END 2020-10-09 01:49 | disposition home or self-care (01) ==
LOC: M ED 21:11
DX: R07.89 Other chest pain (principal); R06.02 Shortness of breath; F33.9 Major depressive disorder, recurrent, unspecified; F41.1 Generalized anxiety disorder; D68.2 Hereditary deficiency of other clotting factors; Z79.899 Other long term (current) drug therapy; Z79.01 Long term (current) use of anticoagulants; Z88.5 Allergy status to narcotic agent; Z88.8 Allergy status to other drugs, medicaments and biological substances; Z91.040 Latex allergy status; F17.210 Nicotine dependence, cigarettes, uncomplicated

== ENCOUNTER 2020-11-02 19:05 | Emergency (ER) | payer OTHER ==
[~2020-11-02] VITALS: Ht 165.1 cm; Wt 121.3 kg
[2020-11-02 19:06] VITALS: BP 118/86
--- NOTE | 2020-11-02 20:15 | REPVR ---
PROCEDURE INFORMATION: Exam: US Duplex Right Lower Extremity Veins, Limited Exam date and time: 11/02/2020 8:04 PM Age: 35 years old Clinical indication: Pain; Edema, localized; Lower extremity, right; Leg, lower and foot; Additional info: Pain and swelling, R/O dvt TECHNIQUE: Imaging protocol: Real-time Duplex ultrasound of the Right Lower Extremity with 2-D wall scale, color Doppler flow and spectral waveform analysis with image documentation. Limited exam was focused on the right lower extremity veins. COMPARISON: US Duplex, Ext,LOWER veins,unilat 07/05/2014 4:52 AM FINDINGS: Right deep veins: Unremarkable. The common femoral, femoral, proximal profunda femoral and popliteal veins are patent without thrombus. Normal Doppler waveforms. Normal compressibility and/or augmentation response. Right superficial veins: Unremarkable. Saphenofemoral junction is patent without thrombus. Soft tissues: Unremarkable. IMPRESSION: No evidence of deep vein thrombosis. Electronically signed by: Blake Hernandez On 11/02/2020 20:15:31 PM
== END 2020-11-02 21:13 | disposition home or self-care (01) ==
LOC: M ED 19:05
DX: R60.9 Edema, unspecified (principal); Z79.899 Other long term (current) drug therapy; Z79.01 Long term (current) use of anticoagulants; Z88.5 Allergy status to narcotic agent; Z88.8 Allergy status to other drugs, medicaments and biological substances; Z91.040 Latex allergy status; F17.210 Nicotine dependence, cigarettes, uncomplicated

== ENCOUNTER 2020-11-05 15:33 | Emergency (ER) | payer OTHER ==
[~2020-11-05] VITALS: Ht 165.1 cm; Wt 119.1 kg
[2020-11-05] MEDS ORDERED: VITA200015 (15:39)
[2020-11-05] MEDS ORDERED: MECLIZINE 25 MG TABLET PO ONE (19:25)
[2020-11-05 20:16] LABS: HEMATOCRIT 35.3 % (36.0-47.0); HEMOGLOBIN 10.5 g/dl (12.0-15.5); MEAN CORPUSCULAR HEMOGLOBIN 23.3 pg (27.0-33.0); MEAN CORPUSCULAR HGB CONC 29.7 g/dl (32.0-36.5); MEAN CORPUSCULAR VOLUME 78.4 fl (80.0-96.0); PLATELET COUNT, AUTOMATED 282 10^3/uL (150-450); WHITE BLOOD COUNT 10.2 10^3/uL (4.0-10.0)
[2020-11-05 20:41] LABS: HCG, SERUM QUALITATIVE NEGATIVE (NEGATIVE)
[2020-11-05 20:45] LABS: ALBUMIN 3.5 GM/DL (3.2-5.2); ALT/SGPT 20 U/L (12-78); BILIRUBIN,TOTAL 0.2 MG/DL (0.2-1.0); BLOOD UREA NITROGEN 9 MG/DL (7-18); CALCIUM LEVEL 9.7 MG/DL (8.5-10.1); CARBON DIOXIDE LEVEL 25 MEQ/L (21-32); CHLORIDE LEVEL 112 MEQ/L (98-107); CK-MB VALUE MASS < 1.0 NG/ML (<3.6); CPK CREATINE PHOSPHOKINASE 61 U/L (26-192); CREATININE FOR GFR 0.67 MG/DL (0.55-1.30); GLOMERULAR FILTRATION RATE > 60.0 (>60); GLUCOSE, FASTING 84 MG/DL (70-100); MB/CK RELATIVE INDEX 1.64 (< OR =4); POTASSIUM SERUM 4.3 MEQ/L (3.5-5.1); SODIUM LEVEL 141 MEQ/L (136-145); TOTAL PROTEIN 7.5 GM/DL (6.4-8.2); TROPONIN I < 0.02 NG/ML (< 0.10)
[2020-11-05 20:52] LABS: BASOPHILS 2 % (0-1); EOSINOPHILS 7 % (0-3); LYMPHOCYTES 14 % (16-44); MONOCYTES 7 % (0-5); NEUTROPHILS 70 % (28-66); PLATELET ESTIMATE NORMAL (NORMAL)
[2020-11-05 20:53] LABS: HYPOCHROMASIA 1+
[2020-11-05 20:55] LABS: ANISOCYTOSIS 1+
--- NOTE | 2020-11-05 21:24 | REPVR ---
PROCEDURE INFORMATION: Exam: CT Head Without Contrast Exam date and time: 11/05/2020 8:44 PM Age: 35 years old Clinical indication: Dizziness; Additional info: Dizzy TECHNIQUE: Imaging protocol: Computed tomography of the head without contrast. Radiation optimization: All CT scans at this facility use at least one of these dose optimization techniques: automated exposure control; mA and/or kV adjustment per patient size (includes targeted exams where dose is matched to clinical indication); or iterative reconstruction. COMPARISON: CT Head without contrast 06/26/2015 9:12 PM FINDINGS: Brain: Normal. No hemorrhage. Unremarkable white matter. No mass effect. Cerebral ventricles: No ventriculomegaly. Paranasal sinuses: Small volume of nonspecific secretions within the sphenoid sinus. Mastoid air cells: Mild partial opacification of the bilateral mastoid air cells. Bones/joints: Unremarkable. No acute fracture. Soft tissues: Unremarkable. IMPRESSION: No acute intracranial abnormality. Electronically signed by: Stan Del Castillo On 11/05/2020 21:24:16 PM
[2020-11-05] MEDS ORDERED: MECL1TAB31 PO (21:34)
[2020-11-05 21:45] VITALS: BP 113/68
--- NOTE | 2020-11-06 05:34 | ECGEPIP ---
[facility] - ED Test Date: 2020-11-05 Pat Name: JOSE KRISHNAMURTHY Department: Room: - Gender: Female Union Representative: ALLAN : 1985 Requested By: Dario Ureña Order Number: [id number] Reading MD: Arvin Vang Measurements Intervals [place] Rate: 88 P: 20 [place]: 192 QRS: 33 QRSD: 80 T: 32 QT: 342 QTc: 413 Interpretive Statements Normal sinus rhythm Similar to tracing done 03-21-18 Electronically Signed on 11-06-2020 5:33:41 EDT by Arvin Vang
== END 2020-11-05 21:59 | disposition home or self-care (01) ==
LOC: M ED 15:33
DX: H83.09 Labyrinthitis, unspecified ear (principal); I10 Essential (primary) hypertension; D68.2 Hereditary deficiency of other clotting factors; G43.909 Migraine, unspecified, not intractable, without status migrainosus; Z86.718 Personal history of other venous thrombosis and embolism; Z79.899 Other long term (current) drug therapy; Z79.01 Long term (current) use of anticoagulants; Z88.5 Allergy status to narcotic agent; Z88.8 Allergy status to other drugs, medicaments and biological substances; F17.210 Nicotine dependence, cigarettes, uncomplicated

== ENCOUNTER 2021-10-10 20:10 | Emergency (ER) | payer OTHER ==
[~2021-10-10 20:10] MED LIST changes: +DOXY-443; -DOXY100C37; +MECL1TAB31 PO; -MOME50SP NARES; +NASO50SP3 NARES; +VITA200035
[2021-10-10 20:55] LABS: BASO # 0.1 10^3/uL (0.0-0.2); BASO % 1.2 % (0.0-1.0); EOS # 0.4 10^3/uL (0.0-0.5); EOS % 5.5 % (0.0-3.0); HEMATOCRIT 32.3 % (36.0-47.0); LYMPH # 1.9 10^3/uL (1.5-5.0); LYMPH % 24.6 % (24.0-44.0); MEAN CORPUSCULAR HEMOGLOBIN 25.5 pg (27.0-33.0); MEAN CORPUSCULAR VOLUME 82.4 fl (80.0-96.0); MONO # 0.4 10^3/uL (0.0-0.8); MONO % 4.6 % (2.0-8.0); NEUTROPHILS # 4.8 10^3/uL (1.5-8.5); NEUTROPHILS % 63.7 % (36.0-66.0); PLATELET COUNT, AUTOMATED 319 10^3/uL (150-450); RED BLOOD COUNT 3.92 10^6/uL (4.00-5.40); WHITE BLOOD COUNT 7.6 10^3/uL (4.0-10.0)
[2021-10-10 21:08] LABS: HCG, SERUM QUALITATIVE NEGATIVE (NEGATIVE)
[2021-10-10 21:24] LABS: ACETAMINOPHEN LEVEL < 2.0 UG/ML (10.0-30.0); ALBUMIN 3.2 GM/DL (3.2-5.2); ALT/SGPT 18 U/L (12-78); BILIRUBIN,DIRECT < 0.1 MG/DL (0.0-0.2); BILIRUBIN,TOTAL 0.2 MG/DL (0.2-1.0); BLOOD UREA NITROGEN 11 MG/DL (7-18); CALCIUM LEVEL 10.1 MG/DL (8.5-10.1); CARBON DIOXIDE LEVEL 23 MEQ/L (21-32); CHLORIDE LEVEL 114 MEQ/L (98-107); CREATININE FOR GFR 0.91 MG/DL (0.55-1.30); ETHYL ALCOHOL (ETHANOL) < 0.003 % (0.000-0.010); GLOMERULAR FILTRATION RATE > 60.0 (>60); GLUCOSE, FASTING 119 MG/DL (70-100); POTASSIUM SERUM 3.8 MEQ/L (3.5-5.1); SALICYLATE LEVEL 1.7 MG/DL (5.0-30.0); SODIUM LEVEL 145 MEQ/L (136-145); TOTAL PROTEIN 7.1 GM/DL (6.4-8.2)
[2021-10-10 22:11] LABS: AMPHETAMINES LEVEL URINE NEGATIVE (NEGATIVE); BARBITURATES URINE NEGATIVE (NEGATIVE); BENZODIAZEPINES URINE NEGATIVE (NEGATIVE); CANNABINOIDS URINE NEGATIVE (NEGATIVE); COCAINE METABOLITE URINE NEGATIVE (NEGATIVE); METHADONE URINE NEGATIVE (NEGATIVE); OPIATES URINE NEGATIVE (NEGATIVE); PHENCYCLIDINE URINE NEGATIVE (NEGATIVE)
[2021-10-10 23:30] VITALS: BP 119/73
== END 2021-10-10 23:34 | disposition home or self-care (01) ==
LOC: M ED 20:10
DX: I47.9 Paroxysmal tachycardia, unspecified (principal); F41.9 Anxiety disorder, unspecified; Z86.73 Personal history of transient ischemic attack (TIA), and cerebral infarction without residual deficits; Z88.5 Allergy status to narcotic agent; Z88.8 Allergy status to other drugs, medicaments and biological substances; Z91.040 Latex allergy status; Z79.899 Other long term (current) drug therapy; Z79.01 Long term (current) use of anticoagulants

== ENCOUNTER → 2021-12-03 | Outpatient (CLI) | payer OTHER | LOC: M WHC 10:43 | PROVIDERS: ATTEND Nurse Practitioner Family | DX: Z12.31 Encounter for screening mammogram for malignant neoplasm of breast (principal); Z80.3 Family history of malignant neoplasm of breast ==

== ENCOUNTER → 2022-02-07 | Outpatient (REF) | payer OTHER ==
[~2022-02-07] MED LIST changes: +BACT800T5 PO; +XANA0.5T PO
== END ==
LOC: M LAB REF 15:55
PROVIDERS: ATTEND Physician Assistant Medical
DX: J02.9 Acute pharyngitis, unspecified (principal)

== ENCOUNTER → 2022-09-03 | Outpatient (REF) | payer OTHER ==
[2022-09-03 19:15] LABS: CHOLESTEROL RISK RATIO 4.73 (<5); HDL CHOLESTEROL 37.2 MG/DL (>40); LDL CHOLESTEROL 119.2 MG/DL (<100); NON-HDL-C 138.8 MG/DL
== END ==
LOC: M LAB REF 16:30
PROVIDERS: ATTEND Nurse Practitioner Family
DX: E78.5 Hyperlipidemia, unspecified (principal)

== ENCOUNTER → 2022-12-15 | Outpatient (REF) | payer OTHER ==
[2022-12-15 18:31] LABS: ALBUMIN 3.3 G/DL (3.2-5.2); ALKALINE PHOSPHATASE 87 U/L (46-116); ALT/SGPT 13 U/L (7.0-40); AST/SGOT < 8 U/L (<34); BILIRUBIN,DIRECT < 0.1 MG/DL (<0.4); BILIRUBIN,TOTAL 0.2 MG/DL (0.3-1.2); BLOOD UREA NITROGEN 14 MG/DL (9-23); CALCIUM LEVEL 10.1 MG/DL (8.5-10.1); CARBON DIOXIDE LEVEL 20 MMOL/L (20-31); CHLORIDE LEVEL 110 MMOL/L (98-107); CREATININE FOR GFR 0.74 MG/DL (0.55-1.30); GLOMERULAR FILTRATION RATE > 60.0 (>60); GLUCOSE, FASTING 92 MG/DL (60-100); POTASSIUM SERUM 4.6 MMOL/L (3.5-5.1); SODIUM LEVEL 138 MMOL/L (136-145); TOTAL PROTEIN 6.7 G/DL (5.7-8.2)
[2022-12-15 18:32] LABS: THYROID STIMULATING HORMONE 3.584 uIU/ML (0.55-4.78)
[2022-12-15 18:33] LABS: TOTAL 25(OH) VITAMIN D 25.1 NG/ML (20.0-100.0)
== END ==
LOC: M LAB REF 16:46
PROVIDERS: ATTEND Nurse Practitioner Family
DX: Z68.37 Body mass index [BMI] 37.0-37.9, adult (principal); E55.9 Vitamin D deficiency, unspecified; D50.9 Iron deficiency anemia, unspecified

== ENCOUNTER 2023-04-10 11:37 | Outpatient (CLI) | payer OTHER ==
[~2023-04-10] VITALS: Ht 165.1 cm; Wt 122.5 kg
[~2023-04-10 11:37] MED LIST changes: +ALBUTEROL SULFATE 2.5MG/0.5ML INH NEB SOLN INH PRN; +EPINEPHrine INJ 1 MG/ML 1ML AMP IM PRN; +MECL-209 PO; -MECL1TAB31 PO; +NS 1,000 ML IV SCH; +diphenhydrAMINE 50MG/ML VIAL IV PRN; +methylPREDNISolone 125MG 2ML VIAL IV PRN
[2023-04-10 12:10] VITALS: BP 122/87; O2SAT 99
[2023-04-10] MEDS ORDERED: IRON SUCROSE 200 MG in NS 100 ML OVER 1 HR IV ONE (12:15)
[2023-04-10 13:35] VITALS: BP 151/71; O2SAT 100
== END 2023-04-10 13:35 ==
LOC: M INFU 11:37
PROVIDERS: ATTEND Internal Medicine Medical Oncology
DX: D50.9 Iron deficiency anemia, unspecified (principal); Z88.6 Allergy status to analgesic agent; Z88.5 Allergy status to narcotic agent; Z88.8 Allergy status to other drugs, medicaments and biological substances
CPT/HCPCS: 96365; J1756

== ENCOUNTER 2024-03-20 06:31 | Emergency (ER) | payer OTHER ==
[~2024-03-20] VITALS: Ht 165.1 cm; Wt 127.9 kg
[~2024-03-20 06:31] MED LIST changes: -ALBUTEROL SULFATE 2.5MG/0.5ML INH NEB SOLN INH PRN; +DOXY-441; -DOXY-443; -EPINEPHrine INJ 1 MG/ML 1ML AMP IM PRN; -KLON0.5T PO; +KLON0.5T8 PO; -NS 1,000 ML IV SCH; -SIME180C25 PO; +SIME1CAP4 PO; -diphenhydrAMINE 50MG/ML VIAL IV PRN; -methylPREDNISolone 125MG 2ML VIAL IV PRN
[2024-03-20] MEDS ORDERED: FLON1SPR NARES (08:44)
[2024-03-20] MEDS ORDERED: MUPI2OI TOP (08:44)
[2024-03-20] MEDS ORDERED: SODI88SP NARES (08:44)
[2024-03-20 09:05] VITALS: BP 141/80; TEMP 97.9; O2SAT 97
== END 2024-03-20 09:11 | disposition home or self-care (01) ==
LOC: M ED 06:31
DX: R05.9 Cough, unspecified (principal); R22.0 Localized swelling, mass and lump, head; F17.210 Nicotine dependence, cigarettes, uncomplicated; Z88.5 Allergy status to narcotic agent; Z88.8 Allergy status to other drugs, medicaments and biological substances; Z91.040 Latex allergy status; Z79.01 Long term (current) use of anticoagulants; Z79.810 Long term (current) use of selective estrogen receptor modulators (SERMs); Z79.899 Other long term (current) drug therapy

== ENCOUNTER → 2024-06-22 | Outpatient (REF) | payer OTHER ==
[~2024-06-22] MED LIST changes: +FLON1SPR NARES; +MUPI2OI TOP; +SODI88SP NARES
[2024-06-22 18:02] LABS: BASO # 0.1 10^3/uL (0.0-0.2); BASO % 1.1 % (0.0-1.0); EOS # 0.5 10^3/uL (0.0-0.5); EOS % 6.2 % (0.0-3.0); HEMATOCRIT 37.3 % (36.0-47.0); HEMOGLOBIN 11.4 g/dl (12.0-15.5); LYMPH # 2.1 10^3/uL (1.5-5.0); LYMPH % 26.2 % (24.0-44.0); MEAN CORPUSCULAR HEMOGLOBIN 25.1 pg (27.0-33.0); MEAN CORPUSCULAR HGB CONC 30.6 g/dl (32.0-36.5); MONO # 0.6 10^3/uL (0.0-0.8); MONO % 7.1 % (2.0-8.0); NEUTROPHILS # 4.8 10^3/uL (1.5-8.5); NEUTROPHILS % 59.2 % (36.0-66.0); PLATELET COUNT, AUTOMATED 345 10^3/uL (150-450); RED BLOOD COUNT 4.55 10^6/uL (4.00-5.40); WHITE BLOOD COUNT 8.1 10^3/uL (4.0-10.0)
[2024-06-22 18:14] LABS: HEMOGLOBIN A1c 5.2 % (4.0-6.0)
[2024-06-22 18:19] LABS: BLOOD UREA NITROGEN 20 MG/DL (9-23); CALCIUM LEVEL 9.8 MG/DL (8.5-10.1); CARBON DIOXIDE LEVEL 25 MMOL/L (20-31); CHLORIDE LEVEL 111 MMOL/L (98-107); CHOLESTEROL LEVEL 185 MG/DL (<200); CHOLESTEROL RISK RATIO 4.31 (<5); GLOMERULAR FILTRATION RATE > 60.0 (>60); GLUCOSE, FASTING 102 MG/DL (60-100); HDL CHOLESTEROL 42.9 MG/DL (>40); IRON (FE) 24 UG/DL (50-170); LDL CHOLESTEROL 118.5 MG/DL (<100); NON-HDL-C 142.1 MG/DL; POTASSIUM SERUM 4.8 MMOL/L (3.5-5.1); SODIUM LEVEL 141 MMOL/L (136-145); TRIGLYCERIDES LEVEL 118 MG/DL (<150)
[2024-06-22 18:20] LABS: PERCENT SATURATION 6.2 % (13.2-45.0); TOTAL IRON BINDING CAPACITY 389 UG/DL (250-425)
[2024-06-22 18:23] LABS: THYROID STIMULATING HORMONE 3.684 uIU/ML (0.55-4.78)
== END ==
LOC: M LAB REF 16:20
PROVIDERS: ATTEND Nurse Practitioner Family
DX: E66.9 Obesity, unspecified (principal); D50.9 Iron deficiency anemia, unspecified

== ENCOUNTER → 2025-01-03 | Outpatient (REF) | payer OTHER ==
[2025-01-03 15:48] LABS: BASO # 0.1 10^3/uL (0.0-0.2); BASO % 1.0 % (0.0-1.0); EOS # 0.5 10^3/uL (0.0-0.5); EOS % 5.0 % (0.0-3.0); LYMPH # 1.9 10^3/uL (1.5-5.0); LYMPH % 20.1 % (24.0-44.0); MONO # 0.7 10^3/uL (0.0-0.8); MONO % 7.3 % (2.0-8.0); NEUTROPHILS # 6.2 10^3/uL (1.5-8.5); NEUTROPHILS % 66.2 % (36.0-66.0); PLATELET COUNT, AUTOMATED 317 10^3/uL (150-450)
[2025-01-03 15:55] LABS: IRON (FE) 38.0 UG/DL (50-170); PERCENT SATURATION 10.0 % (13.2-45.0)
== END ==
LOC: M LAB REF 14:18
PROVIDERS: ATTEND Nurse Practitioner Family
DX: D50.9 Iron deficiency anemia, unspecified (principal)

== ENCOUNTER 2025-05-30 12:17 | Outpatient (CLI) | payer OTHER ==
[~2025-05-30] VITALS: Ht 165.1 cm; Wt 136.3 kg
[~2025-05-30 12:17] MED LIST changes: +ALBUTEROL SULFATE 2.5 MG/0.5 ML INH CONCENTRATE NEB SOLN INH PRN; +EPINEPHrine INJ 1 MG/ML 1ML AMP IM PRN; -IBUP-1022 PO; +IBUP600T42 PO; -SODI88SP NARES; +SODI88SP7 NARES; +diphenhydrAMINE 50 MG/ML VIAL IV PRN
[2025-05-30] MEDS: IRON SUCROSE 200MG IVP IV ONE (12:51)
[2025-05-30 13:25] VITALS: BP 142/72; O2SAT 99
== END 2025-05-30 13:25 | disposition home or self-care (01) ==
LOC: M INFU 12:17
DX: D50.9 Iron deficiency anemia, unspecified (principal); Z88.5 Allergy status to narcotic agent; Z88.6 Allergy status to analgesic agent; Z91.040 Latex allergy status
CPT/HCPCS: 96374; J1756